=== PATIENT | female | born 1970 | race African-American/Black ===

== ENCOUNTER 2018-12-02 15:17 | Emergency (ER) | payer MEDICAID ==
[~2018-12-02] VITALS: Ht 157.5 cm; Wt 64.9 kg
[2018-12-02] MEDS ORDERED: IBUPROFEN 600 MG TAB PO ONE (15:45)
[2018-12-02 20:09] VITALS: BP 145/98
== END 2018-12-02 20:16 | disposition home or self-care (01) ==
LOC: ER 15:17
DX: M19.011 Primary osteoarthritis, right shoulder (principal)
CPT/HCPCS: 73030

== ENCOUNTER 2019-10-27 13:59 | Emergency (ER) | payer MEDICAID ==
[~2019-10-27] VITALS: Ht 160 cm; Wt 58.5 kg
[2019-10-27] MEDS ORDERED: SODIUM CHLORIDE 0.9% 1,000 ML IVB ONE (14:35)
[2019-10-27] MEDS ORDERED: PROMETHAZINE HCL 25 MG/ML 1ML IV PRN (14:45)
[2019-10-27 15:06] LABS: Basophils # (auto) 0.1 uL; Basophils % (auto) 0.9 % (0.0-2.0); Eosinophils # (auto) 0.1 uL; Eosinophils % (auto) 0.4 % (0.0-7.0); Hematocrit 42.3 % (36.0-46.0); Hemoglobin 14.3 g/dL (12.2-16.2); Lymphocytes # (auto) 3.7 uL; Mean Corpuscular Hemoglobin 32.4 pg (28.0-32.0); Mean Corpuscular Hgb Conc. 33.8 g/dL (32.0-36.0); Mean Corpuscular Volume 95.7 fL (80.0-100.0); Monocytes # (auto) 1.4 uL; Monocytes % (auto) 10.2 % (0.0-12.0); Neutrophils # (auto) 8.5 uL; Neutrophils % (auto) 61.5 % (37.0-80.0); Platelet Count (auto) 260 10^3/uL (140-450); Red Blood Cells 4.42 10^6/uL (4.0-5.20); Red Cell Distribution Width 14.1 % (11.8-14.3); White Blood Cell 13.8 10^3/uL (4.4-10.8)
[2019-10-27 15:23] LABS: Albumin 3.6 g/dL (3.4-5.0); BUN/Creatinine Ratio 19.3; Calcium 9.4 mg/dL (8.5-10.1)
[2019-10-27 15:32] LABS: Bilirubin, Total 0.4 mg/dL (0.2-1.0); Total Protein 8.2 g/dL (6.4-8.2)
[2019-10-27 16:09] LABS: Urine Bacteria FEW /hpf (None Seen); Urine Blood Negative /uL (Negative); Urine Mucus FEW (None Seen); Urine Specific Gravity 1.021 (1.001-1.035); Urine WBC 1 /hpf (0 - 5)
[2019-10-27 16:59] VITALS: BP 155/94
== END 2019-10-27 17:38 | disposition home or self-care (01) ==
LOC: ER 13:59
DX: N20.0 Calculus of kidney (principal); E27.8 Other specified disorders of adrenal gland
CPT/HCPCS: 36415; 71045; 74176; 80053; 81001; 81025; 82150; 83690; 83735; 85025; 96361; 96374; 99284; J2550; J7030

== ENCOUNTER 2021-03-31 00:49 | Inpatient (IN) | payer MEDICAID ==
[~2021-03-31] VITALS: Ht 160 cm; Wt 65.8 kg
[2021-03-31 02:46] LABS: Basophils # (auto) 0.2 10 ^3/uL (0-0.2); Basophils % (auto) 1.5 % (0.0-2.0); Eosinophils # (auto) 0.2 10 ^3/uL (0-0.8); Eosinophils % (auto) 1.3 % (0.0-7.0); Hemoglobin 13.5 g/dL (12.2-16.2); Lymphocytes # (auto) 3.9 10 ^3/uL (0.4-5.4); Lymphocytes % (auto) 31.4 % (10.0-50.0); Mean Corpuscular Hemoglobin 31.5 pg (28.0-32.0); Mean Corpuscular Hgb Conc. 32.8 g/dL (32.0-36.0); Mean Corpuscular Volume 96.1 fL (80.0-100.0); Monocytes # (auto) 1.4 10 ^3/uL (0-1.3); Monocytes % (auto) 11.3 % (0.0-12.0); Neutrophils # (auto) 6.7 10 ^3/uL (1.6-8.6); Neutrophils % (auto) 54.5 % (37.0-80.0); Nucleated Red Blood Cells % 0.1 %; Red Blood Cells 4.27 10^6/uL (4.0-5.20); Red Cell Distribution Width 13.9 % (11.8-14.3); White Blood Cell 12.3 10^3/uL (4.4-10.8)
[2021-03-31 02:50] LABS: Urine Bacteria FEW /hpf (None Seen); Urine Blood Negative /uL (Negative); Urine Mucus FEW (None Seen); Urine Specific Gravity 1.022 (1.001-1.035); Urine WBC 7 /hpf (0 - 5)
[2021-03-31 03:03] LABS: Albumin 3.7 g/dL (3.4-5.0); BUN/Creatinine Ratio 17.9; Calcium 8.8 mg/dL (8.5-10.1)
[2021-03-31 03:12] LABS: Bilirubin, Total 0.2 mg/dL (0.2-1.0); Total Protein 8.1 g/dL (6.4-8.2)
[2021-03-31] MEDS ORDERED: KETOROLAC TROMETH 60MG/2ML VIAL IM ONE (03:15)
[2021-03-31] MEDS ORDERED: cloNIDine HCL 0.1 MG TAB PO ONE (03:30)
[2021-03-31] MEDS ORDERED: SODIUM CHLORIDE 0.9% 1,000 ML IV ONE (03:45)
[2021-03-31] MEDS ORDERED: metroNIDAZOLE 500MG/100ML 100 ML IV ONE (05:00)
[2021-03-31] MEDS ORDERED: cefTRIAXone 1GM/50ML D5W 50 ML IV ONE (05:00)
[2021-03-31 05:16] LABS: Amylase 80 U/L (25-115); Lipase 453 U/L (73-393)
[2021-03-31] MEDS: SODIUM CHLORIDE 0.9% 1,000 ML IV SCH ×2 (05:45→22:14)
[2021-03-31] MEDS ORDERED: HYDROcodone-ACET 5/325MG TAB PO PRN (05:45)
[2021-03-31] MEDS ORDERED: ACETAMINOPHEN 325 MG TAB PO PRN (05:45)
[2021-03-31] MEDS ORDERED: MORPHINE SULFATE 4 MG/ML SYR/VIAL IV PRN (05:45)
[2021-03-31] MEDS ORDERED: NITROGLYCERIN 0.4 MG SL TAB SL PRN (05:45)
[2021-03-31] MEDS ORDERED: hydrALAZINE HCL 20 MG/ML VL IV PRN (05:45)
[2021-03-31] MEDS ORDERED: MORPHINE SULFATE INJECTION 2 MG/ML SYRG IV PRN (05:45)
[2021-03-31] MEDS ORDERED: metroNIDAZOLE 500MG/100ML 100 ML IV SCH (06:00)
[2021-03-31] MEDS: ONDANSETRON HCL 4 MG/2 ML VIAL IV PRN ×3 (06:46→21:01)
[2021-03-31 07:38] LABS: Basophils # (auto) 0.1 10 ^3/uL (0-0.2); Basophils % (auto) 0.7 % (0.0-2.0); Eosinophils # (auto) 0.1 10 ^3/uL (0-0.8); Eosinophils % (auto) 1.4 % (0.0-7.0); Hematocrit 35.5 % (36.0-46.0); Hemoglobin 11.6 g/dL (12.2-16.2); Lymphocytes # (auto) 3.4 10 ^3/uL (0.4-5.4); Lymphocytes % (auto) 35.3 % (10.0-50.0); Mean Corpuscular Hemoglobin 31.7 pg (28.0-32.0); Mean Corpuscular Hgb Conc. 32.7 g/dL (32.0-36.0); Mean Corpuscular Volume 96.7 fL (80.0-100.0); Monocytes # (auto) 1.1 10 ^3/uL (0-1.3); Monocytes % (auto) 11.2 % (0.0-12.0); Neutrophils # (auto) 4.9 10 ^3/uL (1.6-8.6); Neutrophils % (auto) 51.4 % (37.0-80.0); Nucleated Red Blood Cells % 0.1 %; Red Blood Cells 3.67 10^6/uL (4.0-5.20); Red Cell Distribution Width 13.9 % (11.8-14.3); White Blood Cell 9.5 10^3/uL (4.4-10.8)
[2021-03-31 07:55] LABS: Albumin 2.9 g/dL (3.4-5.0); Calcium 8.1 mg/dL (8.5-10.1); Potassium 4.1 mmol/L (3.5-5.1)
[2021-03-31 08:00] LABS: BUN/Creatinine Ratio 20.6; Bilirubin, Total 0.2 mg/dL (0.2-1.0); Total Protein 6.7 g/dL (6.4-8.2)
[2021-03-31 08:54] VITALS: BP 115/71
[2021-03-31] MEDS ORDERED: BUPR100T15 PO (08:56)
[2021-03-31] MEDS ORDERED: cefTRIAXone 1GM/50ML D5W 50 ML IV SCH (09:00)
[2021-03-31] MEDS: FAMOTIDINE (10MG/ML) 2ML VL IV SCH ×2 (09:44→21:00)
[2021-03-31] MEDS: ENOXAPARIN SOD 40 MG/0.4 ML SYRINGE SC SCH (09:45)
[2021-03-31] MEDS: amLODIPine BESYLATE 5 MG TAB PO SCH (09:45)
[2021-03-31 13:00] VITALS: BP 113/58
[2021-03-31] MEDS ORDERED: THIAMINE HCL 100 MG TAB PO ONE (13:00)
[2021-03-31] MEDS ORDERED: MULTIPLE VITAMINS W/ MINERALS TAB PO ONE (13:00)
[2021-03-31] MEDS: MORPHINE SULFATE INJECTION 2 MG/ML SYRG IV PRN ×2 (15:44→21:00)
[2021-03-31 16:42] VITALS: BP 132/78
[2021-03-31 19:36] LABS: Alcohol, Urine < 3.0 mg/dL (0-10); Amphetamine Screen, Urine NEGATIVE (NEGATIVE); Barbiturate Scree,Urine NEGATIVE (NEGATIVE); Benzodiazephine Screen, Urine NEGATIVE (NEGATIVE); Cannabinoid Screen, Urine POSITIVE (NEGATIVE); Cocaine Screen, Urine NEGATIVE (NEGATIVE); Opiate Scree,Urine NEGATIVE (NEGATIVE); Phencyclidine Screen, Urine NEGATIVE (NEGATIVE)
[2021-03-31 22:00] VITALS: BP 138/80
[2021-03-31] MEDS ORDERED: TEMAZEPAM 15 MG CAP PO ONE (22:15)
[2021-04-01 05:00] VITALS: BP 113/68
[2021-04-01 05:15] LABS: Basophils # (auto) 0 10 ^3/uL (0-0.2); Basophils % (auto) 0.5 % (0.0-2.0); Eosinophils # (auto) 0.1 10 ^3/uL (0-0.8); Eosinophils % (auto) 1.9 % (0.0-7.0); Hematocrit 34.7 % (36.0-46.0); Hemoglobin 11.8 g/dL (12.2-16.2); Lymphocytes # (auto) 3.1 10 ^3/uL (0.4-5.4); Lymphocytes % (auto) 40.9 % (10.0-50.0); Mean Corpuscular Hemoglobin 32.5 pg (28.0-32.0); Mean Corpuscular Volume 95.8 fL (80.0-100.0); Monocytes # (auto) 0.9 10 ^3/uL (0-1.3); Monocytes % (auto) 11.9 % (0.0-12.0); Neutrophils # (auto) 3.4 10 ^3/uL (1.6-8.6); Neutrophils % (auto) 44.8 % (37.0-80.0); Nucleated Red Blood Cells % 0.2 %; Red Blood Cells 3.62 10^6/uL (4.0-5.20); Red Cell Distribution Width 13.7 % (11.8-14.3); White Blood Cell 7.5 10^3/uL (4.4-10.8)
[2021-04-01 05:40] LABS: Potassium 4.2 mmol/L (3.5-5.1)
[2021-04-01 05:51] LABS: Albumin 2.9 g/dL (3.4-5.0); BUN/Creatinine Ratio 13.1; Bilirubin, Total 0.4 mg/dL (0.2-1.0); Total Protein 6.5 g/dL (6.4-8.2)
[2021-04-01 09:00] VITALS: BP 115/73
[2021-04-01] MEDS: FAMOTIDINE (10MG/ML) 2ML VL IV SCH (09:56)
[2021-04-01] MEDS: ENOXAPARIN SOD 40 MG/0.4 ML SYRINGE SC SCH (09:57)
[2021-04-01] MEDS: amLODIPine BESYLATE 5 MG TAB PO SCH (09:57)
[2021-04-01] MEDS ORDERED: MULTIPLE VITAMINS W/ MINERALS TAB PO SCH (10:00)
[2021-04-01] MEDS ORDERED: THIAMINE HCL 100 MG TAB PO SCH (10:00)
[2021-04-01 13:00] VITALS: BP 151/95
[2021-04-01 14:53] VITALS: BP 115/73
[2021-04-01] MEDS: SODIUM CHLORIDE 0.9% 1,000 ML IV SCH (15:05)
== END 2021-04-01 16:40 | disposition home or self-care (01) | DRG 282 ==
LOC: ER 00:49 → TELE 05:40 → TELE-WESTW 07:52
PROVIDERS: ADMIT Nurse Practitioner Family; ATTEND Internal Medicine
DX: K85.90 Acute pancreatitis without necrosis or infection, unspecified (principal); R65.10 Systemic inflammatory response syndrome (SIRS) of non-infectious origin without acute organ dysfunction; E44.0 Moderate protein-calorie malnutrition; E88.09 Other disorders of plasma-protein metabolism, not elsewhere classified; F10.10 Alcohol abuse, uncomplicated; S39.012A Strain of muscle, fascia and tendon of lower back, initial encounter; D63.8 Anemia in other chronic diseases classified elsewhere; F12.90 Cannabis use, unspecified, uncomplicated; I16.0 Hypertensive urgency; F17.210 Nicotine dependence, cigarettes, uncomplicated; N20.0 Calculus of kidney; Z20.822 Contact with and (suspected) exposure to COVID-19; X58.XXXA Exposure to other specified factors, initial encounter; Y93.89 Activity, other specified; Z71.6 Tobacco abuse counseling; Z71.41 Alcohol abuse counseling and surveillance of alcoholic; Z82.49 Family history of ischemic heart disease and other diseases of the circulatory system; Y92.89 Other specified places as the place of occurrence of the external cause; Y99.8 Other external cause status; K29.70 Gastritis, unspecified, without bleeding
CPT/HCPCS: 36415; 71045; 74176; 80053; 80307; 81001; 81025; 82150; 83036; 83605; 83690; 83735; 85025; 87040; 87426; 93005; 96361; 96365; 96366; 96367; 96368; 96375; G0378; J0696; J1885; J2405; J3490

== ENCOUNTER 2023-06-23 04:26 | Inpatient (IN) | payer OTHER, MEDICAID ==
[~2023-06-23] VITALS: Ht 162.6 cm; Wt 69.8 kg
[~2023-06-23 04:26] MED LIST: BUPR-413 PO
[2023-06-23 05:10] LABS: Basophils # (auto) 0.1 10 ^3/uL (0-0.2); Basophils % (auto) 1.1 % (0.0-2.0); Eosinophils # (auto) 0.3 10 ^3/uL (0-0.8); Eosinophils % (auto) 2.2 % (0.0-7.0); Hematocrit 38.8 % (36.0-46.0); Hemoglobin 12.9 g/dL (12.2-16.2); Lymphocytes % (auto) 33.8 % (10.0-50.0); Mean Corpuscular Hgb Conc. 33.2 g/dL (32.0-36.0); Mean Corpuscular Volume 93.4 fL (80.0-100.0); Monocytes # (auto) 1.4 10 ^3/uL (0-1.3); Monocytes % (auto) 11.6 % (0.0-12.0); Neutrophils # (auto) 6.1 10 ^3/uL (1.6-8.6); Neutrophils % (auto) 51.3 % (37.0-80.0); Nucleated Red Blood Cells % 0.1 %; Red Blood Cells 4.16 10^6/uL (4.0-5.20); Red Cell Distribution Width 13.9 % (11.8-14.3); White Blood Cell 11.8 10^3/uL (4.4-10.8)
[2023-06-23 05:48] LABS: Albumin 3.5 g/dL (3.4-5.0); Calcium 9.4 mg/dL (8.5-10.1)
[2023-06-23 05:51] LABS: Potassium 2.9 mmol/L (3.5-5.1)
[2023-06-23 05:54] LABS: BUN/Creatinine Ratio 18.8 (10.0-20.0); Bilirubin, Total 0.2 mg/dL (0.2-1.0); Total Protein 7.8 g/dL (6.4-8.2)
[2023-06-23] MEDS ORDERED: POTASSIUM CHL 20MEQ/100ML 100 ML IV SCH (06:00)
[2023-06-23] MEDS ORDERED: METOCLOPRAMIDE HCL 5MG/ml INJ 2ml VIAL IV ONE (07:00)
[2023-06-23] MEDS ORDERED: SODIUM CHLORIDE 0.9% 1,000 ML IVB ONE (07:00)
[2023-06-23] MEDS ORDERED: HYDROmorphone HCL 2 MG/ML VL/or syr IV ONE (07:00)
[2023-06-23] MEDS ORDERED: SODIUM CHLORIDE 0.9% 1,000 ML IV ONE (07:00)
[2023-06-23] MEDS ORDERED: IOHEXOL 300 MG/ML 100ML BOTTLE IJ ONE (07:21)
[2023-06-23] MEDS ORDERED: POTASSIUM EFFERVESENT TAB 25 MEQ PO ONE (08:30)
[2023-06-23 08:41] VITALS: PULSE 76
[2023-06-23 10:15] LABS: Urine Bacteria FEW /hpf (None Seen); Urine Blood Negative /uL (Negative); Urine Clarity HAZY (Clear); Urine Color Yellow (Yellow); Urine Hyaline Cast FEW /lpf (0 - 2); Urine Mucus FEW (None Seen); Urine Protein, UAD TRACE (Negative); Urine Specific Gravity 1.025 (1.001-1.035); Urine Urobilinogen Normal (Negative); Urine WBC 9 /hpf (0 - 5)
[2023-06-23] MEDS ORDERED: hydrALAZINE HCL 20 MG/ML VL IV PRN (12:00)
[2023-06-23] MEDS ORDERED: levoFLOXacin 500MG 100 ML IV SCH (12:15)
[2023-06-23] MEDS: SODIUM CHLORIDE 0.9% 1,000 ML IV SCH (13:36)
[2023-06-23 14:15] LABS: Amphetamine Screen, Urine NEGATIVE (NEGATIVE); Barbiturate Scree,Urine NEGATIVE (NEGATIVE); Benzodiazephine Screen, Urine NEGATIVE (NEGATIVE); Cannabinoid Screen, Urine POSITIVE (NEGATIVE); Cocaine Screen, Urine NEGATIVE (NEGATIVE); Opiate Scree,Urine NEGATIVE (NEGATIVE)
[2023-06-23] MEDS: cefTRIAXone 1GM/50ML D5W 50 ML IV SCH (14:19)
[2023-06-23] MEDS: DOCUSATE SOD 100 MG CAP PO SCH ×2 (14:36→21:08)
[2023-06-23] MEDS: metroNIDAZOLE 500MG/100ML 100 ML IV SCH ×2 (14:56→21:09)
[2023-06-23] MEDS: HYDROcodone-ACET 5/325MG TAB PO PRN ×2 (15:38→21:56)
[2023-06-23 16:27] LABS: Alcohol, Urine < 3.0 mg/dL (0-10)
[2023-06-23 16:36] LABS: Phencyclidine Screen, Urine NEGATIVE (NEGATIVE)
[2023-06-23 17:38] LABS: BUN/Creatinine Ratio 12.3 (10.0-20.0); Calcium 8.9 mg/dL (8.5-10.1); Potassium 3.3 mmol/L (3.5-5.1)
[2023-06-23] MEDS ORDERED: ONDANSETRON HCL 4 MG/2 ML VIAL IV PRN (23:00)
[2023-06-24] MEDS ORDERED: ZOLPIDEM TARTRATE 5 MG TAB PO ONE
[2023-06-24] MEDS: SODIUM CHLORIDE 0.9% 1,000 ML IV SCH ×2 (01:44→14:41)
[2023-06-24 05:03] LABS: Basophils # (auto) 0.1 10 ^3/uL (0-0.2); Basophils % (auto) 0.8 % (0.0-2.0); Calcium 8.5 mg/dL (8.5-10.1); Eosinophils # (auto) 0.1 10 ^3/uL (0-0.8); Eosinophils % (auto) 1.5 % (0.0-7.0); Hematocrit 33.8 % (36.0-46.0); Hemoglobin 11.3 g/dL (12.2-16.2); Lymphocytes # (auto) 3.8 10 ^3/uL (0.4-5.4); Lymphocytes % (auto) 37.7 % (10.0-50.0); Mean Corpuscular Hemoglobin 31.3 pg (28.0-32.0); Mean Corpuscular Hgb Conc. 33.3 g/dL (32.0-36.0); Mean Corpuscular Volume 93.9 fL (80.0-100.0); Monocytes % (auto) 10.2 % (0.0-12.0); Neutrophils % (auto) 49.8 % (37.0-80.0); Nucleated Red Blood Cells % 0.1 %; Potassium 3.5 mmol/L (3.5-5.1); Red Cell Distribution Width 13.7 % (11.8-14.3)
[2023-06-24] MEDS: DOCUSATE SOD 100 MG CAP PO SCH ×3 (05:39→22:13)
[2023-06-24] MEDS: HYDROcodone-ACET 5/325MG TAB PO PRN ×3 (05:54→22:13)
[2023-06-24 06:05] VITALS: PULSE 85; RESP 18; O2SAT 100
[2023-06-24] MEDS: metroNIDAZOLE 500MG/100ML 100 ML IV SCH ×3 (06:08→22:12)
[2023-06-24 07:45] VITALS: PULSE 67; RESP 16; O2SAT 95
[2023-06-24] MEDS: MORPHINE SULFATE INJ 2 MG/ml SYRG IV PRN ×2 (07:53→14:42)
[2023-06-24] MEDS: cefTRIAXone 1GM/50ML D5W 50 ML IV SCH (10:02)
[2023-06-24] MEDS ORDERED: ATOR10TA52 PO (13:32)
[2023-06-24 13:33] VITALS: BP 150/60; PULSE 93; RESP 18; TEMP 97.5; O2SAT 93
[2023-06-24 17:16] VITALS: BP 167/90; PULSE 91; RESP 18; TEMP 97.6; O2SAT 98
[2023-06-24 22:00] VITALS: BP 138/80; PULSE 80; PULSE 82; RESP 16; TEMP 97.7; O2SAT 98
[2023-06-25] MEDS ORDERED: METR-344 PO (00:23)
[2023-06-25] MEDS ORDERED: CIPR-173 PO (00:23)
[2023-06-25] MEDS: MORPHINE SULFATE INJ 2 MG/ml SYRG IV PRN (01:16)
[2023-06-25] MEDS: SODIUM CHLORIDE 0.9% 1,000 ML IV SCH (02:49)
[2023-06-25 05:00] VITALS: BP 119/67; PULSE 78; RESP 16; TEMP 98.4; O2SAT 96
[2023-06-25] MEDS: metroNIDAZOLE 500MG/100ML 100 ML IV SCH (06:10)
[2023-06-25] MEDS: DOCUSATE SOD 100 MG CAP PO SCH (06:10)
[2023-06-25 07:10] LABS: Basophils # (auto) 0 10 ^3/uL (0-0.2); Basophils % (auto) 0.6 % (0.0-2.0); Eosinophils # (auto) 0.1 10 ^3/uL (0-0.8); Eosinophils % (auto) 1.5 % (0.0-7.0); Hematocrit 31.8 % (36.0-46.0); Hemoglobin 10.5 g/dL (12.2-16.2); Lymphocytes # (auto) 3.2 10 ^3/uL (0.4-5.4); Lymphocytes % (auto) 40.8 % (10.0-50.0); Monocytes # (auto) 0.7 10 ^3/uL (0-1.3); Monocytes % (auto) 9.4 % (0.0-12.0); Neutrophils # (auto) 3.7 10 ^3/uL (1.6-8.6); Neutrophils % (auto) 47.7 % (37.0-80.0); Nucleated Red Blood Cells % 0.1 %; Red Blood Cells 3.38 10^6/uL (4.0-5.20); Red Cell Distribution Width 14.2 % (11.8-14.3); White Blood Cell 7.8 10^3/uL (4.4-10.8)
[2023-06-25 07:59] LABS: BUN/Creatinine Ratio 10.3 (10.0-20.0); Calcium 8.5 mg/dL (8.7-10.4); Potassium 3.8 mmol/L (3.5-5.1)
[2023-06-25 08:00] VITALS: BP 124/70; PULSE 70; PULSE 77; RESP 20; TEMP 97.9
[2023-06-25] MEDS: cefTRIAXone 1GM/50ML D5W 50 ML IV SCH (08:45)
[2023-06-25 09:00] VITALS: BP 124/70; PULSE 77; RESP 20; TEMP 97.9; O2SAT 93
[2023-06-25 10:49] LABS: Cholesterol 146 mg/dL (< 200); HDL Cholesterol 52 mg/dL (40-59); LDL Cholesterol 86 mg/dL (< 100); Triglycerides 31 mg/dL (< 150)
[2023-06-25 12:36] VITALS: BP 131/75; PULSE 85; RESP 20; TEMP 98.7; O2SAT 99
[2023-06-25 14:15] VITALS: BP 124/70; PULSE 77; RESP 20; TEMP 97.9; O2SAT 93
== END 2023-06-25 15:27 | disposition home or self-care (01) | DRG 439 ==
LOC: EDBD 04:26 → ER 04:26 → TELE 12:12 → TELE-WESTW 06-24 13:27
PROVIDERS: ADMIT Internal Medicine; ATTEND Internal Medicine
DX: K85.90 Acute pancreatitis without necrosis or infection, unspecified (principal); F11.20 Opioid dependence, uncomplicated; N39.0 Urinary tract infection, site not specified; I11.0 Hypertensive heart disease with heart failure; I50.9 Heart failure, unspecified; E78.5 Hyperlipidemia, unspecified; G43.D1 Abdominal migraine, intractable; E87.6 Hypokalemia; F32.A Depression, unspecified; F41.9 Anxiety disorder, unspecified; M54.2 Cervicalgia; K52.9 Noninfective gastroenteritis and colitis, unspecified; G47.00 Insomnia, unspecified; Z82.49 Family history of ischemic heart disease and other diseases of the circulatory system; Z87.440 Personal history of urinary (tract) infections; Z87.442 Personal history of urinary calculi; K86.1 Other chronic pancreatitis
CPT/HCPCS: 36415; 71046; 74177; 80048; 80053; 80061; 80307; 81001; 83690; 83735; 83880; 85025; 93005; G0378; J0696; J2405; J3490

== ENCOUNTER 2023-08-02 21:10 | Emergency (ER) | payer OTHER, MEDICAID ==
[~2023-08-02] VITALS: Ht 160 cm; Wt 59.9 kg
[~2023-08-02 21:10] MED LIST changes: +ATOR10TA52 PO; +CIPR-173 PO; +METR-344 PO
[2023-08-02 22:41] LABS: Basophils # (auto) 0.1 10 ^3/uL (0-0.2); Basophils % (auto) 0.9 % (0.0-2.0); Eosinophils # (auto) 0.2 10 ^3/uL (0-0.8); Eosinophils % (auto) 1.3 % (0.0-7.0); Hematocrit 40.4 % (36.0-46.0); Hemoglobin 13.6 g/dL (12.2-16.2); Lymphocytes # (auto) 4.3 10 ^3/uL (0.4-5.4); Lymphocytes % (auto) 35.4 % (10.0-50.0); Mean Corpuscular Hemoglobin 31.8 pg (28.0-32.0); Mean Corpuscular Hgb Conc. 33.6 g/dL (32.0-36.0); Mean Corpuscular Volume 94.5 fL (80.0-100.0); Monocytes # (auto) 1.2 10 ^3/uL (0-1.3); Monocytes % (auto) 10.3 % (0.0-12.0); Neutrophils # (auto) 6.3 10 ^3/uL (1.6-8.6); Neutrophils % (auto) 52.1 % (37.0-80.0); Red Blood Cells 4.27 10^6/uL (4.0-5.20); Red Cell Distribution Width 14.4 % (11.8-14.3); White Blood Cell 12.1 10^3/uL (4.4-10.8)
[2023-08-02 22:52] LABS: Urine Bacteria NONE SEEN /hpf (None Seen); Urine Blood Negative /uL (Negative); Urine Clarity HAZY (Clear); Urine Color Yellow (Yellow); Urine Mucus FEW (None Seen); Urine Protein, UAD TRACE (Negative); Urine Specific Gravity 1.023 (1.001-1.035); Urine Urobilinogen Normal (Negative); Urine WBC 9 /hpf (0 - 5)
[2023-08-02 22:52] LABS: Alanine Aminotransferase 19 U/L (7-40); Albumin 4.9 g/dL (3.2-4.8); Alkaline Phosphatase 102 U/L (46-116); Anion Gap 6 (5-15); Aspartate Aminotransferase 15 U/L (13-40); BUN/Creatinine Ratio 16.7 (10.0-20.0); Blood Urea Nitrogen 16 mg/dL (9-23); Calcium 9.9 mg/dL (8.7-10.4); Carbon Dioxide 33 mmol/L (20-30); Chloride 99 mmol/L (98-107); Glucose 131 mg/dL (74-106); Lipase 157 U/L (12-53); Magnesium 1.7 mg/dL (1.6-2.6); Potassium 3.5 mmol/L (3.5-5.1); Sodium 138 mmol/L (136-145)
[2023-08-02 22:53] LABS: Bilirubin, Total 0.2 mg/dL (0.2-1.0); Total Protein 8.3 g/dL (5.7-8.2)
[2023-08-03] MEDS ORDERED: MORPHINE SULFATE INJ 2 MG/ml SYRG IM ONE (03:30)
[2023-08-03 04:13] VITALS: PULSE 84; RESP 19; O2SAT 98
[2023-08-03] MEDS ORDERED: ONDANSETRON HCL 4 MG/2 ML VIAL IV ONE (04:30)
[2023-08-03] MEDS ORDERED: ONDANSETRON HCL 4 MG/2 ML VIAL ONE (04:33)
[2023-08-03] MEDS ORDERED: cefTRIAXone 1GM/50ML D5W 50 ML IV ONE (06:00)
[2023-08-03] MEDS ORDERED: ONDANSETRON HCL 4 MG/2 ML VIAL IV PRN (06:00)
[2023-08-03] MEDS ORDERED: SODIUM CHLORIDE 0.9% 1,000 ML IV ONE (06:00)
[2023-08-03] MEDS ORDERED: MORPHINE SULFATE INJ 2 MG/ml SYRG IV PRN (06:00)
[2023-08-03 08:40] VITALS: BP 125/75; PULSE 83; RESP 18; TEMP 98.1; O2SAT 96
== END 2023-08-03 08:40 | disposition short-term general hospital (02) ==
LOC: ER 21:10
DX: K85.90 Acute pancreatitis without necrosis or infection, unspecified (principal); I11.0 Hypertensive heart disease with heart failure; I50.9 Heart failure, unspecified; E11.9 Type 2 diabetes mellitus without complications; E78.5 Hyperlipidemia, unspecified; F17.210 Nicotine dependence, cigarettes, uncomplicated; Z79.2 Long term (current) use of antibiotics; Z79.899 Other long term (current) drug therapy
CPT/HCPCS: 36415; 74176; 80053; 81001; 81025; 83690; 83735; 84484; 85025; 93005; 96365; 96372; 96375; 96376; 99285; J0696; J2270; J2405

== ENCOUNTER 2024-09-08 13:33 | Inpatient (IN) | payer OTHER ==
[~2024-09-08] VITALS: Ht 157.5 cm; Wt 57.4 kg
[2024-09-08 15:10] LABS: Basophils # (auto) 0.1 10 ^3/uL (0-0.2); Basophils % (auto) 0.9 % (0.0-2.0); Eosinophils # (auto) 0.1 10 ^3/uL (0-0.8); Eosinophils % (auto) 0.5 % (0.0-7.0); Hematocrit 42.6 % (36.0-46.0); Hemoglobin 14.4 g/dL (12.2-16.2); Lymphocytes % (auto) 30.4 % (10.0-50.0); Mean Corpuscular Hgb Conc. 33.8 g/dL (32.0-36.0); Mean Corpuscular Volume 94.7 fL (80.0-100.0); Monocytes # (auto) 1.6 10 ^3/uL (0-1.3); Monocytes % (auto) 12.3 % (0.0-12.0); Neutrophils # (auto) 7.4 10 ^3/uL (1.6-8.6); Neutrophils % (auto) 55.9 % (37.0-80.0); Nucleated Red Blood Cells % 0.1 %; Platelet Count (auto) 315 10^3/uL (140-450); White Blood Cell 13.2 10^3/uL (4.4-10.8)
--- NOTE | 2024-09-08 15:12 | ED.PDOC ---
History of Present Illness HPI Comments 53-year-old female presents with a chief complaint of constipation and abdominal pain since 08/31/2024. Patient reports that she has been taking Wittmann's for her chronic back pain. Patient mentions being constipated since 08/31/2024 and has endorsed that she has been using stool softeners with no relief. Patient also reports that she has some LUQ abdominal pain. No other symptoms or modifying factors present. Chief Complaint: Constipation Time Seen by MD: 14:48 Primary Care Provider: MADONNA Morrow Notes: Medications, Allergies Allergies: Coded Allergies: NO KNOWN ALLERGIES (Unverified , 03/04/16) Home Meds Active Scripts Pantoprazole Sodium Sesquihydr (Protonix) 40 Mg Tab, 40 MG PO DAILY for 7 Days, #7 TAB Prov:ODESSA SULLIVAN MD 09/08/24 Cephalexin (KEFLEX CAPSULE) 250 Mg Cp, 250 MG PO QID for 5 Days, #20 BOTTLE Prov:ODESSA SULLIVAN MD 09/08/24 Metronidazole (Flagyl) 500 Mg Tab, 1 TAB PO TID, #15 TAB Prov:VICENTE DENNY MD 06/25/23 Ciprofloxacin Hcl (Cipro) 500 Mg Tab, 500 MG PO Q12HR, #10 TAB Prov:VICENTE DENNY MD 06/25/23 Reported Medications Atorvastatin Calcium (ATORVASTATIN CALCIUM) 10 Mg Tab, 1 TAB PO DAILY, #30 TAB 5 Refills 06/24/23 Bupropion Hcl (WELLBUTRIN TABLET) 100 Mg Tb, 100 MG PO DAILY, TAB 03/31/21 Information Source: Patient Mode of Arrival: Ambulatory Severity: Moderate Timing: Days Duration: Since onset Prehospital treatment: None Past Medical History PAST MEDICAL HISTORY: CHF, DM, High Lipids, HTN, Kidney Stones Surgical History: BTL DIRECTOR OF TEACHING AND LEARNING History: No Pertinent DIRECTOR OF TEACHING AND LEARNING History Family History Family History: Family hx of HTN Family History (Other): fibromyalgia Social History Smoker: Cigarettes, Less Than 1 Pack/Day Alcohol: Denies ETOH Use Drugs: Marijuana Lives In: Home Constitutional: denies: chills, diaphoresis, fatigue, fever, malaise, sweats, weakness, others EENTM: denies: blurred vision, double vision, ear bleeding, ear discharge, ear drainage, ear pain, ear ringing, eye pain, eye redness, hearing loss, mouth pain, mouth swelling, nasal discharge, nose bleeding, nose congestion, nose pain, photophobia, tearing, throat pain, throat swelling, voice changes, others Respiratory: denies: cough, hemoptysis, orthopnea, SOB at rest, shortness of breath, SOB with excertion, stridor, wheezing, others Cardiovascular: denies: chest pain, dizzy spells, diaphoresis, Dyspnea on exertion, edema, irregular heart beat, left arm pain, lightheadedness, palpitations, PND, syncope, others Gastrointestinal: reports: abdominal pain, constipated; denies: abdomen distended, blood streaked bowels, diarrhea, dysphagia, difficulty swallowing, hematemesis, melena, nausea, poor appetite, poor fluid intake, rectal bleeding, rectal pain, vomiting, others Genitourinary: denies: abnormal vagina bleeding, burning, dyspareunia, dysuria, flank pain, frequency, hematuria, incontinence, pain, , vagina discharge, urgency, others Neurological: denies: dizziness, fainting, headache, left sided numbness, left sided weakness, numbness, paresthesia, pre-existing deficit, right sided numbness, right sided weakness, seizure, speech problems, tingling, tremors, weakness, others Musculoskeletal: denies: back pain, gout, joint pain, joint swelling, muscle pain, muscle stiffness, neck pain, others Integumetry: denies: bruises, change in color, change in hair/nails, dryness, laceration, lesions, lumps, rash, wounds, others Allergic/Immunocompromised: denies: Difficulty Healing, Frequent Infections, Hives, Itching, others Hematologic/Lymphatic: denies: anemia, blood clots, easy bleeding, easy bruising, swollen glands, others Endocrine: denies: excessive hunger, excessive sweating, excessive thirst, excessive urination, flushing, intolerance to cold, intolerance to heat, unexplained weight gain, unexplained weight loss, others Psychiatric: denies: anxiety, bipolar disorder, depression, hopeless, panic disorder, schizophrenia, sleepless, suicidal, others All Other Systems: Reviewed and Negative Physical Exam General Appearance: Moderate Distress, Normal HEENT: Normal ENT Inspection, Pharynx Normal, TMs Normal Neck: Full Range of Motion, Non-Tender, Normal, Normal Inspection Respiratory: Chest Non-Tender, Lungs Clear, No Accessory Muscle Use, No Respiratory Distress, Normal Breath Sounds Cardiovascular: No Edema, No JVD, No Murmur, No Gallop, Normal Peripheral Pulses, Tachycardia Breast Exam: Deferred Gastrointestinal: No Organomegaly, Non Tender, No Pulsatile Mass, Normal Bowel Sounds, Soft Genitalia: Deferred Pelvic: Deferred Rectal: Deferred Extremities: No calf tenderness, Normal capillary refill, Normal inspection, N ormal range of motion, Non-tender, No pedal edema Musculoskeletal : Apperance: Normal Neurologic: Alert, cut roll machine offbearer II-XII nml as Tested, No Motor Deficits, Normal Affect, Normal Mood, No Sensory Deficits Cerebellar Function: Normal Reflexes: Normal Skin: Dry, Normal Color, Warm Peripheral Pulses: 3+ Radial (R), 3+ Radial (L) Lymphatic: No Adenopathy Was a procedure done? Was a procedure done?: No Differential Dx Considerations may include: Chronic pain syndrome Electrolyte imbalance X-Ray, Labs, Meds, VS Vital Signs Date Time Temp Pulse Resp B/P (MAP) Pulse Ox O2 Delivery O2 Flow Rate FiO2 09/08/24 13:58 97.8 125 16 124/95 (105) 98 Lab Test 09/08/24 14:51 Range/Units White Blood Count 13.2 H 4.4-10.8 10^3/uL Red Blood Count 4.50 4.0-5.20 10^6/uL Hemoglobin 14.4 12.2-16.2 g/dL Hematocrit 42.6 36.0-46.0 % Mean Corpuscular Volume 94.7 80.0-100.0 fL Mean Corpuscular Hemoglobin 32.0 28.0-32.0 pg Mean Corpuscular Hemoglobin Concent 33.8 32.0-36.0 g/dL Red Cell Distribution Width 14.0 11.8-14.3 % Platelet Count 315 140-450 10^3/uL Mean Platelet Volume 8.4 6.9-10.8 fL Neutrophils (%) (Auto) 55.9 37.0-80.0 % Lymphocytes (%) (Auto) 30.4 10.0-50.0 % Monocytes (%) (Auto) 12.3 H 0.0-12.0 % Eosinophils (%) (Auto) 0.5 0.0-7.0 % Basophils (%) (Auto) 0.9 0.0-2.0 % Neutrophils # (Auto) 7.4 1.6-8.6 10 ^3/uL Lymphocytes # (Auto) 4.0 0.4-5.4 10 ^3/uL Monocytes # (Auto) 1.6 H 0-1.3 10 ^3/uL Eosinophils # (Auto) 0.1 0-0.8 10 ^3/uL Basophils # (Auto) 0.1 0-0.2 10 ^3/uL Nucleated Red Blood Cells 0.1 % Sodium Level 136 136-145 mmol/L Potassium Level 3.8 3.5-5.1 mmol/L Chloride Level 102 98-107 mmol/L Carbon Dioxide Level 29 20-31 mmol/L Anion Gap 5 5-15 Blood Urea Nitrogen 17 9-23 mg/dL Creatinine 1.09 H 0.550-1.02 mg/dL Glomerular Filtration Rate Calc 60 >90 mL/min BUN/Creatinine Ratio 15.6 10.0-20.0 Serum Glucose 131 H 74-106 mg/dL Calcium Level 10.1 8.7-10.4 mg/dL Patient alert. Came in because of constipation. X-ray of the abdomen does not show any acute process. Glucose slightly elevated. WBC slightly elevated. Neutrophils within normal limits. No sign of any infection. Abdomen is soft nontender. Reviewed her previous visit. Continues to be on pain medication. Was given GI cocktail. Possible urinary tract infection. Was given prescription of Keflex antibiotic. Explained to the patient. Wanted to discharge the patient. Came back stating that she is in severe pain. She does not want to go home. States that the pain is worse than when she came in. Time of 1ST Reevaluation: 15:18 Reevaluation 1ST: Unchanged Patient Education/Counseling: Diagnosis, Treatment, Prognosis Family Education/Counseling: No Family Present Departure 1 Departure Time of Disposition: 16:54 Impression: Primary Impression: Gastritis Qualified Codes: K29.30 - Chronic superficial gastritis without bleeding Additional Impression: HTN (hypertension) Qualified Codes: I10 - Essential (primary) hypertension Disposition: 01 HOME / SELF CARE / HOMELESS Condition: Good e-Prescriptions Pantoprazole Sodium Sesquihydr (Protonix) 40 Mg Tab 40 MG PO DAILY for 7 Days, #7 TAB Prov: ODESSA SULLIVAN MD 11/5/24 Cephalexin (KEFLEX CAPSULE) 250 Mg Cp 250 MG PO QID for 5 Days, #20 BOTTLE Prov: ODESSA SULLIVAN MD 09/08/24 Discharged With: Self Critical Care Note Critical Care Time?: No Stability Stability form required: No Heart Score Heart Score: Heart Score Response (Comments) Value History N/A 0 EKG N/A 0 Age N/A 0 Risk Factors N/A 0 Troponin N/A 0 Total 0 I personally scribed for ODESSA SULLIVAN MD ([email or web address]) on 09/08/24 at 15:12. Electronically submitted by Dhruv Cardozo ([email or web address]). ODESSA SULLIVAN MD Sep 08, 2024 15:12
[2024-09-08 15:22] LABS: Chloride 102 mmol/L (98-107); Potassium 3.8 mmol/L (3.5-5.1); Sodium 136 mmol/L (136-145)
[2024-09-08 15:23] LABS: Anion Gap 5 (5-15); Calcium 10.1 mg/dL (8.7-10.4); Carbon Dioxide 29 mmol/L (20-31)
[2024-09-08 15:28] LABS: BUN/Creatinine Ratio 15.6 (10.0-20.0); Blood Urea Nitrogen 17 mg/dL (9-23); Glucose 131 mg/dL (74-106)
--- NOTE | 2024-09-08 15:50 | DVH ---
EXAM: XY KUB ABDOMEN SINGLE VIEW HISTORY: constipation COMPARISON: None TECHNIQUE: Single AP of the abdomen and pelvis was obtained. Findings: Frontal view of the abdomen demonstrates a nonobstructive bowel gas pattern. No visualized renal calc demi. There is no evidence of an acute fracture, dislocation, blastic, or lytic lesions. The visualized portions of the lung bases are unremarkable. No radiopaque foreign bodies. No superficial soft tissue abnormalities. Impression: 1. Nonobstructive bowel gas pattern. 2. No visualized renal calculi.
[2024-09-08] MEDS ORDERED: PANT40TA2 PO (16:56)
[2024-09-08] MEDS ORDERED: CEPH250C PO (16:56)
[2024-09-08] MEDS: MAALOX PLUS or MAALOX 30 ML PO ONE (17:38)
[2024-09-08] MEDS: LIDOCAINE VISCOUS 2% 15ML UD PO ONE (17:38)
[2024-09-08] MEDS: DONNATAL 5ml ORAL Elix (BELLADONNA ALK-PHENOBARB) PO ONE (17:39)
[2024-09-08] MEDS ORDERED: ACETAMINOPHEN 325 MG TAB PO PRN (21:00)
[2024-09-08] MEDS: ONDANSETRON HCL 4 MG/2 ML VIAL IV ONE (21:23)
[2024-09-08] MEDS: MORPHINE SULFATE 4 MG/ML SYR/VIAL IV ONE (21:23)
[2024-09-08 22:40] VITALS: BP 149/93; PULSE 87; RESP 16; TEMP 97.7; O2SAT 93
[2024-09-08 22:52] VITALS: PULSE 87; RESP 16; O2SAT 93
[2024-09-08] MEDS ORDERED: QUET1TAB11 PO (23:04)
[2024-09-08] MEDS ORDERED: CARV3.1240 PO (23:04)
[2024-09-08] MEDS ORDERED: HYDR-4072 PO (23:04)
[2024-09-08] MEDS ORDERED: EMPA1TAB PO (23:04)
[2024-09-08] MEDS ORDERED: ASPI81CH59 PO (23:04)
[2024-09-08] MEDS: ATORVASTATIN 20 MG TAB PO SCH (23:34)
[2024-09-08] MEDS: CARVEDILOL 3.125 MG TAB PO SCH (23:34)
[2024-09-08] MEDS: TEMAZEPAM 15 MG CAP PO PRN (23:35)
[2024-09-08] MEDS: FLEET ENEMA(ADULT) 135 ML PR ONE (23:35)
[2024-09-09] VITALS (7 sets, daily range): BP systolic 98–154; BP diastolic 62–95; PULSE 87–107; RESP 16–20; TEMP 97.4–98.1; O2SAT 95–98
[2024-09-09] MEDS: LACTULOSE 20Gm/30ML SOLN PO PRN (00:15)
[2024-09-09] MEDS: PANTOPRAZOLE 40 MG TAB PO SCH (05:35)
--- NOTE | 2024-09-09 06:03 | DVHHP2 ---
History of Present Illness Reason for Visit: Abdominal pain History of Present Illness 53-year-old female presents for evaluation of abdominal pain. Patient reports a two day history of left upper quadrant abdominal pain. She also states being constipated for the past one-week. She reports having chronic back pain and takes [place] every 4-6 hours. Denies nausea or vomiting. No fever or chills. Cardiac or respiratory complaints. Past Medical History Dyslipidemia, hypertension, diabetes mellitus and congestive heart failure Past Surgical History BTL Family History Hypertension Smoke: <1 pack per day ALCOHOL: none Drugs: Marijuana Lives: with Family Review of Systems Review of Systems Review of systems are currently negative otherwise addressed in HPI Allergies: Coded Allergies: NO KNOWN ALLERGIES (Unverified , 03/04/16) Medications Current Medications Medications Dose Ordered Sig/Sowmya Route Start Time Stop Time Status Last Admin Dose Admin Pantoprazole Sodium 40 mg DAILY@0600 PO 09/09/24 06:00 09/09/24 05:35 40 MG Lactulose 30 ml BIDPRN PRN PO 09/08/24 21:00 09/09/24 00:15 30 ML Atorvastatin Calcium 10 mg HS PO 09/08/24 22:00 09/08/24 23:34 10 MG Bupropion HCl 100 mg DAILY PO 09/09/24 10:00 Carvedilol 3.125 mg Q12HR PO 09/08/24 22:00 09/08/24 23:34 3.125 MG Empaglifozin 10 mg DAILY PO 09/09/24 10:00 Acetaminophen/ Hydrocodone Bitart 1 tab Q4HP PRN PO 09/08/24 21:00 Temazepam 15 mg QHSP PRN PO 09/08/24 21:00 09/08/24 23:35 15 MG Ondansetron HCl 4 mg Q4HP PRN IV 09/08/24 21:00 Acetaminophen 650 mg Q6HP PRN PO 09/08/24 21:00 Exam Vital Signs Vital Signs Date Time Temp Pulse Resp B/P (MAP) Pulse Ox O2 Delivery O2 Flow Rate FiO2 09/09/24 05:00 98.1 107 16 127/78 (94) 95 98.1 09/08/24 22:52 Room Air* 0 21 Exam Gen: 53-year-old female in no apparent distress Skin: Warm, dry, normal color and texture, no rash. HEENT: Normocephalic atraumatic, mucous membranes moist and pink. Neck: Cervical and supraclavicular nodes normal without enlargement, trachea is midline, thyroid gland is normal without masses. Pulmonary: Clear to auscultation and percussion bilaterally. Cardiac: Regular rate and rhythm. No murmur Abdomen: Soft, nontender, nondistended, bowel sounds present all 4 quadrants, no guarding, no rigidity, no organomegaly. Extremities: No cyanosis, clubbing, no edema Neuro: Cranial nerves II through XII grossly intact, normal affect and speech, no focal motor deficits. Labs/Xrays ORDERING PHYSICIAN: ODESSA SULLIVAN MD PROCEDURE(s): KUB - KUB ABDOMEN SINGLE VIEW REASON: constipation ORDER NUMBER(s): [id number], ACCESSION NUMBER(s): [id number] EXAM: XY KUB ABDOMEN SINGLE VIEW HISTORY: constipation COMPARISON: None TECHNIQUE: Single AP of the abdomen and pelvis was obtained. Findings: Frontal view of the abdomen demonstrates a nonobstructive bowel gas pattern. No visualized renal calculi. There is no evidence of an acute fracture, dislocation, blastic, or lytic lesions. The visualized portions of the lung bases are unremarkable. No radiopaque foreign bodies. No superficial soft tissue abnormalities. Impression: 1. Nonobstructive bowel gas pattern. 2. No visualized renal calculi. ATED BY: AISSATOU FISHER DO DICTATED DATE/TIME: 09/08/24 1549 Labs Test 09/08/24 14:51 Range/Units White Blood Count 13.2 H 4.4-10.8 10^3/uL Red Blood Count 4.50 4.0-5.20 10^6/uL Hemoglobin 14.4 12.2-16.2 g/dL Hematocrit 42.6 36.0-46.0 % Mean Corpuscular Volume 94.7 80.0-100.0 fL Mean Corpuscular Hemoglobin 32.0 28.0-32.0 pg Mean Corpuscular Hemoglobin Concent 33.8 32.0-36.0 g/dL Red Cell Distribution Width 14.0 11.8-14.3 % Platelet Count 315 140-450 10^3/uL Mean Platelet Volume 8.4 6.9-10.8 fL Neutrophils (%) (Auto) 55.9 37.0-80.0 % Lymphocytes (%) (Auto) 30.4 10.0-50.0 % Monocytes (%) (Auto) 12.3 H 0.0-12.0 % Eosinophils (%) (Auto) 0.5 0.0-7.0 % Basophils (%) (Auto) 0.9 0.0-2.0 % Neutrophils # (Auto) 7.4 1.6-8.6 10 ^3/uL Lymphocytes # (Auto) 4.0 0.4-5.4 10 ^3/uL Monocytes # (Auto) 1.6 H 0-1.3 10 ^3/uL Eosinophils # (Auto) 0.1 0-0.8 10 ^3/uL Basophils # (Auto) 0.1 0-0.2 10 ^3/uL Nucleated Red Blood Cells 0.1 % Sodium Level 136 136-145 mmol/L Potassium Level 3.8 3.5-5.1 mmol/L Chloride Level 102 98-107 mmol/L Carbon Dioxide Level 29 20-31 mmol/L Anion Gap 5 5-15 Blood Urea Nitrogen 17 9-23 mg/dL Creatinine 1.09 H 0.550-1.02 mg/dL Glomerular Filtration Rate Calc 60 >90 mL/min BUN/Creatinine Ratio 15.6 10.0-20.0 Serum Glucose 131 H 74-106 mg/dL Calcium Level 10.1 8.7-10.4 mg/dL Assessment/Plan Assessment/Plan Acute abdominal pain Constipation Chronic back pain Diabetes mellitus Hypertension Plan Admit the patient to [facility] to the hospitalist Pain management Laxatives Resume home medications Continue treatment per orders. Plan discussed with: Patient My Orders Orders - [facility] Procedure Category Date Status Time Pantoprazole Tablet PHA 09/09/24 In Process (Protonix Tablet) 06:00 Lactulose Oral PHA 09/08/24 In Process 21:00 Atorvastatin (Lipitor) PHA 09/08/24 In Process 22:00 Bupropion Tablet PHA 09/09/24 In Process (Wellbutrin Tablet) 10:00 Carvedilol Tablet PHA 09/08/24 In Process (Coreg Tablet) 22:00 Empagliflozin PHA 09/09/24 In Process (Jardiance) 10:00 Basic Metabolic Panel LAB 09/09/24 Logged 04:00 Admit ADMIT 09/08/24 Transmitted 20:49 Hydrocodone-Acet PHA 09/08/24 In Process 5/325mg Tab ([place] 21:00 Temazepam (Restoril) PHA 09/08/24 In Process 21:00 Ondansetron Hcl PHA 09/08/24 In Process (Zofran) 21:00 Cardiac DIET 09/09/24 Transmitted Diet-2gna,Lofat,Lochol Breakfast Condition: Stable ONELIA 09/08/24 In Process 20:49 Acetaminophen Tablet PHA 09/08/24 In Process (Tylenol Tablet) 21:00 Bedrest With Bathroom ONELIA 09/08/24 In Process Privileg 20:49 Date of Service: Sep 08, 2024 Billing Provider: EVAN CHACKO Common Visit Codes: [id number] INP/OBS CARE (MOD) EVAN CHACKO Sep 09, 2024 06:03
[2024-09-09 07:38] LABS: Chloride 101 mmol/L (98-107); Potassium 3.3 mmol/L (3.5-5.1); Sodium 137 mmol/L (136-145)
[2024-09-09 07:39] LABS: Anion Gap 5 (5-15); Carbon Dioxide 31 mmol/L (20-31)
[2024-09-09 07:40] LABS: Calcium 9.6 mg/dL (8.7-10.4)
[2024-09-09 07:44] LABS: Glucose 93 mg/dL (74-106)
[2024-09-09 07:45] LABS: BUN/Creatinine Ratio 17.7 (10.0-20.0); Blood Urea Nitrogen 17 mg/dL (9-23)
[2024-09-09] MEDS: HYDROcodone-ACET 5/325MG TAB PO PRN (08:29)
[2024-09-09 08:51] LABS: Urine Bacteria None Seen /hpf (None Seen)
[2024-09-09 09:15] LABS: Urine Blood Negative /uL (Negative); Urine Clarity Clear (Clear); Urine Color Light-Yellow (Yellow); Urine Protein, UAD Negative (Negative); Urine Specific Gravity 1.015 (1.001-1.035); Urine Urobilinogen Normal (Negative); Urine WBC 1 /hpf (0 - 5)
[2024-09-09] MEDS: buPROPion HCL 100 MG TAB PO SCH (10:00)
[2024-09-09] MEDS: EMPAGLIFLOZIN 10 MG TAB PO SCH (10:00)
[2024-09-09] MEDS: ONDANSETRON HCL 4 MG/2 ML VIAL IV PRN (12:19)
--- NOTE | 2024-09-09 15:12 | DVHPN2 ---
Subjective 53-year-old female with past medical history of hypertension, diabetes, dyslipidemia, heart failure, chronic back pain came with a chief complaint abdominal pain and constipation for 1 week. She has some nausea no vomiting. She says she lost about 10 lb over the last 1-2 weeks Her appetite is poor She takes [place] 10 about 2 or 3 a day for chronic back pain She was also started recently on Jardiance 10 mg daily about a month ago Changes from previous H/P or p: Changes Objective Vitals Vital Signs Date Time Temp Pulse Resp B/P (MAP) Pulse Ox O2 Delivery O2 Flow Rate FiO2 09/09/24 13:00 97.4 97 18 98/62 (74) 95 97.4 09/08/24 22:52 Room Air* 0 21 Intake/Output Intake and Output 09/09/24 06:59 Intake Total 560 ml Balance 560 ml Intake Oral 560 ml # Voids 6 # Bowel Movements 2 General Appearance: Alert, Oriented X3, Cooperative Lungs: Clear to auscultation, Normal air movement Cardiovascular: Regular rate, Normal S1, Normal S2, No murmurs Abdomen: Normal bowel sounds, Soft, No tenderness Extremities: No edema Medications Current Medications Medications Dose Ordered Sig/Sowmya Route Start Time Stop Time Status Last Admin Dose Admin Pantoprazole Sodium 40 mg DAILY@0600 PO 09/09/24 06:00 09/09/24 05:35 40 MG Lactulose 30 ml BIDPRN PRN PO 09/08/24 21:00 09/09/24 00:15 30 ML Atorvastatin Calcium 10 mg HS PO 09/08/24 22:00 09/08/24 23:34 10 MG Bupropion HCl 100 mg DAILY PO 09/09/24 10:00 09/09/24 10:00 100 MG Carvedilol 3.125 mg Q12HR PO 09/08/24 22:00 09/09/24 10:00 3.125 MG Empaglifozin 10 mg DAILY PO 09/09/24 10:00 09/09/24 10:00 10 MG Acetaminophen/ Hydrocodone Bitart 1 tab Q4HP PRN PO 09/08/24 21:00 09/09/24 08:29 1 TAB Temazepam 15 mg QHSP PRN PO 09/08/24 21:00 09/08/24 23:35 15 MG Ondansetron HCl 4 mg Q4HP PRN IV 09/08/24 21:00 09/09/24 12:19 4 MG Acetaminophen 650 mg Q6HP PRN PO 09/08/24 21:00 Laboratory Results Laboratory Tests 09/08/24 14:51 09/09/24 06:26 Chemistry Test 09/09/24 06:26 Calcium Level 9.6 mg/dL (8.7-10.4) Urinalysis Test 09/09/24 08:00 Urine Color Light-yellow (Yellow) Urine Clarity Clear (Clear) Urine pH 5.0 (5.0-9.0) Urine Specific [place] 1.015 (1.001-1.035) Urine Protein Negative (Negative) Urine Ketones Negative (Negative) Urine Blood Negative /uL (Negative) Urine Nitrite Negative (Negative) Urine Bilirubin Negative (Negative) Urine Urobilinogen Normal mg/dL (Negative) Urine Leukocyte Esterase Negative /uL (Negative) Urine RBC 1 /hpf (0 - 4) Urine WBC 1 /hpf (0 - 5) Urine Squamous Epithelial Cells Few /hpf (<5) Urine Bacteria None seen /hpf (None Seen) Urine Glucose 4+ mg/dL (Normal) H Assessment/Plan Assessment/Plan Abdominal pain Constipation Type 2 diabetes Hypertension Dyslipidemia Heart failure Hypokalemia Plan The patient had a large bowel movement last night after the enema and lactulose Discontinue Jardiance for now Give another dose of lactulose 60 mL p.o. x1 Colace 100 mg b.i.d. Pain management with IV morphine for now Soft diet Plan discussed with: Patient Date of Service: Sep 09, 2024 Billing Provider: FIONA SAPP MD Common Visit Codes: NOT BILLABLE FIONA SAPP MD Sep 09, 2024 15:12
[2024-09-09] MEDS ORDERED: DEXTROSE (50%) 50ML SYRG IV PRN (15:15)
[2024-09-09] MEDS: DOCUSATE SOD 100 MG CAP PO ONE (15:15)
[2024-09-09] MEDS: LACTULOSE 20Gm/30ML SOLN PO ONE (16:11)
[2024-09-09] MEDS: ACCU-CHEK COMFORT CURVE STRIP VI SCH (16:18)
[2024-09-09] MEDS: InsuLIN REG 1unit/0.01ml Soln (100units/ml) SC SCH (16:18)
[2024-09-09] MEDS: MORPHINE SULFATE INJ 2 MG/ml SYRG IV PRN (16:27)
[2024-09-09] MEDS: DOCUSATE SOD 100 MG CAP PO SCH (22:22)
[2024-09-10 04:57] VITALS: BP 108/70; PULSE 83; RESP 18; TEMP 97.7; O2SAT 100
[2024-09-10 07:06] LABS: Basophils # (auto) 0.1 10 ^3/uL (0-0.2); Basophils % (auto) 0.5 % (0.0-2.0); Eosinophils # (auto) 0.1 10 ^3/uL (0-0.8); Eosinophils % (auto) 1.5 % (0.0-7.0); Hematocrit 41.3 % (36.0-46.0); Hemoglobin 13.6 g/dL (12.2-16.2); Lymphocytes # (auto) 3.6 10 ^3/uL (0.4-5.4); Lymphocytes % (auto) 35.7 % (10.0-50.0); Mean Corpuscular Hemoglobin 31.6 pg (28.0-32.0); Mean Corpuscular Volume 95.7 fL (80.0-100.0); Monocytes # (auto) 1.2 10 ^3/uL (0-1.3); Monocytes % (auto) 12.1 % (0.0-12.0); Neutrophils # (auto) 5.1 10 ^3/uL (1.6-8.6); Neutrophils % (auto) 50.2 % (37.0-80.0); Nucleated Red Blood Cells % 0.1 %; Platelet Count (auto) 276 10^3/uL (140-450); Red Blood Cells 4.31 10^6/uL (4.0-5.20); Red Cell Distribution Width 13.8 % (11.8-14.3); White Blood Cell 10.1 10^3/uL (4.4-10.8)
[2024-09-10 07:29] LABS: Alanine Aminotransferase 16 U/L (7-40); Albumin 4.4 g/dL (3.2-4.8); Alkaline Phosphatase 90 U/L (46-116); Anion Gap 4 (5-15); Aspartate Aminotransferase 15 U/L (13-40); BUN/Creatinine Ratio 13.8 (10.0-20.0); Blood Urea Nitrogen 12 mg/dL (9-23); Carbon Dioxide 30 mmol/L (20-31); Chloride 103 mmol/L (98-107); Glucose 103 mg/dL (74-106); Magnesium 2.4 mg/dL (1.6-2.6); Potassium 3.9 mmol/L (3.5-5.1); Sodium 137 mmol/L (136-145)
[2024-09-10 07:30] LABS: Bilirubin, Total 0.4 mg/dL (0.2-1.0); Total Protein 7.7 g/dL (5.7-8.2)
[2024-09-10 09:00] VITALS: BP 116/71; PULSE 82; RESP 17; TEMP 97.8; O2SAT 92
--- NOTE | 2024-09-10 10:25 | DVHDS2 ---
Discharge Summary Date of Admission Sep 08, 2024 at 20:49 Date of Discharge: Sep 10, 2024 Labs/Diagnostic Data: Laboratory Results Test 09/10/24 06:06 09/10/24 05:09 09/09/24 08:00 White Blood Count 10.1 10^3/uL (4.4-10.8) Red Blood Count 4.31 10^6/uL (4.0-5.20) Hemoglobin 13.6 g/dL (12.2-16.2) Hematocrit 41.3 % (36.0-46.0) Mean Corpuscular Volume 95.7 fL (80.0-100.0) Mean Corpuscular Hemoglobin 31.6 pg (28.0-32.0) Mean Corpuscular Hemoglobin Concent 33.0 g/dL (32.0-36.0) Red Cell Distribution Width 13.8 % (11.8-14.3) Platelet Count 276 10^3/uL (140-450) Mean Platelet Volume 8.5 fL (6.9-10.8) Neutrophils (%) (Auto) 50.2 % (37.0-80.0) Lymphocytes (%) (Auto) 35.7 % (10.0-50.0) Monocytes (%) (Auto) 12.1 % (0.0-12.0) Eosinophils (%) (Auto) 1.5 % (0.0-7.0) Basophils (%) (Auto) 0.5 % (0.0-2.0) Neutrophils # (Auto) 5.1 10 ^3/uL (1.6-8.6) Lymphocytes # (Auto) 3.6 10 ^3/uL (0.4-5.4) Monocytes # (Auto) 1.2 10 ^3/uL (0-1.3) Eosinophils # (Auto) 0.1 10 ^3/uL (0-0.8) Basophils # (Auto) 0.1 10 ^3/uL (0-0.2) Nucleated Red Blood Cells 0.1 % Sodium Level 137 mmol/L (136-145) Potassium Level 3.9 mmol/L (3.5-5.1) Chloride Level 103 mmol/L (98-107) Carbon Dioxide Level 30 mmol/L (20-31) Anion Gap 4 (5-15) Blood Urea Nitrogen 12 mg/dL (9-23) Creatinine 0.87 mg/dL (0.550-1.02) Glomerular Filtration Rate Calc 79 mL/min (>90) BUN/Creatinine Ratio 13.8 (10.0-20.0) Serum Glucose 103 mg/dL (74-106) Hemoglobin A1c 6.2 % A1C (<5.7) Calcium Level 10.0 mg/dL (8.7-10.4) Magnesium Level 2.4 mg/dL (1.6-2.6) Total Bilirubin 0.4 mg/dL (0.2-1.0) Aspartate Amino Transferase (AST) 15 U/L (13-40) Alanine Aminotransferase (ALT) 16 U/L (7-40) Alkaline Phosphatase 90 U/L (46-116) Total Protein 7.7 g/dL (5.7-8.2) Albumin 4.4 g/dL (3.2-4.8) POC Glucose 102 mg/dl (70-106) Urine Color Light-yellow (Yellow) Urine Clarity Clear (Clear) Urine pH 5.0 (5.0-9.0) Urine Specific [place] 1.015 (1.001-1.035) Urine Protein Negative (Negative) Urine Ketones Negative (Negative) Urine Blood Negative /uL (Negative) Urine Nitrite Negative (Negative) Urine Bilirubin Negative (Negative) Urine Urobilinogen Normal mg/dL (Negative) Urine Leukocyte Esterase Negative /uL (Negative) Urine RBC 1 /hpf (0 - 4) Urine WBC 1 /hpf (0 - 5) Urine Squamous Epithelial Cells Few /hpf (<5) Urine Bacteria None seen /hpf (None Seen) Urine Glucose 4+ mg/dL (Normal) Other Laboratory Tests 09/10/24 06:06 Brief Hx & Hospital Course: Final diagnoses: Constipation due to narcotics use and possibly due to Jardiance Abdominal pain due to constipation Type 2 diabetes Hypertension Dyslipidemia History of heart failure Hypokalemia 53-year-old female who was admitted for abdominal pain and was found to be in constipation. She said she started taking Jardiance lately She takes [place] at home but she has been taking it for years and she says she did not take more than usual Here she was given laxatives and an enema and she had several bowel movements which relieved her symptoms Today she is doing better No abdominal pain No nausea or vomiting CT scan of the abdomen and pelvis showed no significant abnormal findings Vital signs are stable Discharge the patient home to continue milk of magnesia at home Cut down on the [place] dose which is possible Hold Jardiance for now until she is seen by her primary care physician Follow up with PCP as soon as possible Condition at Discharge: Stable Final Diagnosis/Problems List Constipation due to narcotics constipation could be also due to Jardiance Discharge Disposition: Home SNF Discharge Will this Physician continue t: No Discharge Instruct/Medications Diet: Consistent carbohydrate, Cardiac 2g Na,low cholest Activity: No Restrictions, As Tolerated Follow Up/Referral: PCP as soon as possible Medications: Discontinue Jardiance Resume other home medications Take milk of magnesia [id number] daily Cut down on [place] as much as possible Discharge Statement: "Patient was advised to return to the ER or call 911 if any headaches, dizziness, shortness of breath, chest pain, abdominal pain, bleeding, fevers, or worsening of medical condition. Patient was counseled about treatment plan, medications, possible side effects, patientverbalized understanding. All questions were answered to the best of my ability. This discharge took greater then 30 minutes in planning, reviewing documentation, counseling the patient, and discussing with other team members." ASSESSMENT ASSESSMENT Assessment Constipation due to narcotics constipation could be also due to Jardiance Date of Service: Sep 10, 2024 Billing Provider: FIONA SAPP MD Common Visit Codes: NOT BILLABLE FIONA SAPP MD Sep 10, 2024 10:25
[2024-09-10 13:00] VITALS: BP 146/95; PULSE 88; RESP 19; TEMP 98; O2SAT 100
== END 2024-09-10 13:41 | disposition home or self-care (01) | DRG 392 ==
LOC: ER 13:39 → OVERFLOW 20:49 → WEST WING 22:19
PROVIDERS: ADMIT Nurse Practitioner; ATTEND Internal Medicine Geriatric Medicine
DX: K59.03 Drug induced constipation (principal); G89.29 Other chronic pain; E11.9 Type 2 diabetes mellitus without complications; I50.9 Heart failure, unspecified; I11.0 Hypertensive heart disease with heart failure; F17.210 Nicotine dependence, cigarettes, uncomplicated; E87.6 Hypokalemia; E78.5 Hyperlipidemia, unspecified; T38.3X5A Adverse effect of insulin and oral hypoglycemic [antidiabetic] drugs, initial encounter; T40.605A Adverse effect of unspecified narcotics, initial encounter; K29.70 Gastritis, unspecified, without bleeding; Z79.84 Long term (current) use of oral hypoglycemic drugs; Z79.891 Long term (current) use of opiate analgesic; Z79.4 Long term (current) use of insulin; Z82.49 Family history of ischemic heart disease and other diseases of the circulatory system; Z87.442 Personal history of urinary calculi; Y92.89 Other specified places as the place of occurrence of the external cause
CPT/HCPCS: 36415; 74018; 80048; 80053; 81001; 82962; 83036; 83735; 85025; G0378; J2405

== ENCOUNTER 2025-01-27 19:42 | Inpatient (IN) | payer OTHER ==
[~2025-01-27] VITALS: Ht 160 cm; Wt 64.4 kg
[~2025-01-27 19:42] MED LIST changes: +ASPI81CH59 PO; +CARV3.1240 PO; -CIPR-173 PO; +HYDR-4072 PO; -METR-344 PO; +PANT40TA2 PO; +QUET1TAB11 PO
--- NOTE | 2025-01-27 20:11 | ED.PDOC ---
History of Present Illness HPI Comments 54-year-old female presents with a chief complaint of abdominal pain and nausea x onset yesterday. Patient mentions that her pain is localized to her epigastric region, radiating to her backside, describes as cramping, and rates her pain a 10/10. Patient mentions that she has had pancreatitis before and knows that drinking alcohol induces it. Patient mentions that she had alcohol last night and is now having similar pancreatitis pain. No other symptoms or modifying factors present at this time. Time Seen by MD: 20:04 Primary Care Provider: MADONNA Reviewed Notes: Nurses Notes, Medications, Allergies Allergies: Coded Allergies: NO KNOWN ALLERGIES (Unverified , 03/04/16) Home Meds Active Scripts Pantoprazole Sodium Sesquihydr (Protonix) 40 Mg Tab, 40 MG PO DAILY for 7 Days, #7 TAB Prov:ODESSA SULLIVAN MD 09/08/24 Reported Medications Quetiapine Fumerate (QUETIAPINE FUMARATE) 25 Mg Tab, 1 TAB PO HS 09/08/24 Aspirin (Aspirin Low Dose) 81 Mg Chw, 81 MG PO DAILY, TAB.CHEW 09/08/24 Hydrocodone-Acetaminophen (Hydrocodone/Acetaminophen 10-325 mg) 1 Tab Tab, 1 TAB PO PRN for PAIN SCALE 7 THRU 10, TAB 09/08/24 Carvedilol (Carvedilol) 3.125 Mg Tab, 1 TAB PO BID 09/08/24 Atorvastatin Calcium (ATORVASTATIN CALCIUM) 10 Mg Tab, 1 TAB PO DAILY, #30 TAB 5 Refills 06/24/23 Bupropion Hcl (WELLBUTRIN TABLET) 100 Mg Tb, 100 MG PO DAILY, TAB 03/31/21 Information Source: Patient Mode of Arrival: Ambulatory Severity: Moderate Timing: Days Duration: Since onset Prehospital treatment: None Past Medical History PAST MEDICAL HISTORY: CHF, DM, High Lipids, HTN, Kidney Stones Surgical History: 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 Family History Family History: Family hx of HTN Family History (Other): fibromyalgia Social History Smoker: Cigarettes, Less Than 1 Pack/Day Alcohol: Occasionally Drugs: Marijuana Lives In: Home Constitutional: denies: chills, diaphoresis, fatigue, fever, malaise, sweats, weakness, others EENTM: denies: blurred vision, double vision, ear bleeding, ear discharge, ear drainage, ear pain, ear ringing, eye pain, eye redness, hearing loss, mouth pain, mouth swelling, nasal discharge, nose bleeding, nose congestion, nose pain, photophobia, tearing, throat pain, throat swelling, voice changes, others Respiratory: denies: cough, hemoptysis, orthopnea, SOB at rest, shortness of breath, SOB with excertion, stridor, wheezing, others Cardiovascular: denies: chest pain, dizzy spells, diaphoresis, Dyspnea on exertion, edema, irregular heart beat, left arm pain, lightheadedness, palpitations, PND, syncope, others Gastrointestinal: reports: abdominal pain, nausea; denies: abdomen distended, blood streaked bowels, constipated, diarrhea, dysphagia, difficulty swallowing, hematemesis, melena, poor appetite, poor fluid intake, rectal bleeding, rectal pain, vomiting, others Genitourinary: denies: abnormal vagina bleeding, burning, dyspareunia, dysuria, flank pain, frequency, hematuria, incontinence, pain, , vagina discharge, urgency, others Neurological: denies: dizziness, fainting, headache, left sided numbness, left sided weakness, numbness, paresthesia, pre-existing deficit, right sided numbness, right sided weakness, seizure, speech problems, tingling, tremors, weakness, others Musculoskeletal: denies: back pain, gout, joint pain, joint swelling, muscle pain, muscle stiffness, neck pain, others Integumetry: denies: bruises, change in color, change in hair/nails, dryness, laceration, lesions, lumps, rash, wounds, others Allergic/Immunocompromised: denies: Difficulty Healing, Frequent Infections, Hives, Itching, others Hematologic/Lymphatic: denies: anemia, blood clots, easy bleeding, easy bruising, swollen glands, others Endocrine: denies: excessive hunger, excessive sweating, excessive thirst, excessive urination, flushing, intolerance to cold, intolerance to heat, unexplained weight gain, unexplained weight loss, others Psychiatric: denies: anxiety, bipolar disorder, depression, hopeless, panic disorder, schizophrenia, sleepless, suicidal, others All Other Systems: Reviewed and Negative Physical Exam General Appearance: Moderate Distress HEENT: Normal ENT Inspection, Pharynx Normal, TMs Normal Neck: Full Range of Motion, Non-Tender, Normal, Normal Inspection Respiratory: Chest Non-Tender, Lungs Clear, No Accessory Muscle Use, No Respiratory Distress, Normal Breath Sounds Cardiovascular: No Edema, No JVD, No Murmur, No Gallop, Normal Peripheral Pulses, Regular Rate/Rhythm Breast Exam: Deferred Gastrointestinal: Epigastric, No Organomegaly, No Pulsatile Mass, Normal Bowel Sounds, Soft, Tenderness Genitalia: Deferred Pelvic: Deferred Rectal: Deferred Extremities: No calf tenderness, Normal capillary refill, Normal inspection, Normal range of motion, Non-tender, No pedal edema Musculoskeletal : Apperance: Normal Neurologic: Alert, clinical implementation specialist II-XII nml as Tested, No Motor Deficits, Normal Affect, Normal Mood, No Sensory Deficits Cerebellar Function: Normal Reflexes: Normal Skin: Dry, Normal Color, Warm Lymphatic: No Adenopathy Was a procedure done? Was a procedure done?: No Differential Dx Considerations may include: Pancreatitis, cholecystitis X-Ray, Labs, Meds, VS Vital Signs Date Time Temp Pulse Resp B/P (MAP) Pulse Ox O2 Delivery O2 Flow Rate FiO2 01/27/25 20:15 98.7 119 18 155/94 (114) 100 98.7 Lab Test 01/27/25 20:40 01/27/25 20:16 Range/Units White Blood Count 12.8 H 4.4-10.8 10^3/uL Red Blood Count 4.38 4.0-5.20 10^6/uL Hemoglobin 13.9 12.2-16.2 g/dL Hematocrit 41.8 36.0-46.0 % Mean Corpuscular Volume 95.5 80.0-100.0 fL Mean Corpuscular Hemoglobin 31.7 28.0-32.0 pg Mean Corpuscular Hemoglobin Concent 33.2 32.0-36.0 g/dL Red Cell Distribution Width 14.3 11.8-14.3 % Platelet Count 280 140-450 10^3/uL Mean Platelet Volume 8.6 6.9-10.8 fL Neutrophils (%) (Auto) 58.4 37.0-80.0 % Lymphocytes (%) (Auto) 30.0 10.0-50.0 % Monocytes (%) (Auto) 9.8 0.0-12.0 % Eosinophils (%) (Auto) 0.7 0.0-7.0 % Basophils (%) (Auto) 1.1 0.0-2.0 % Neutrophils # (Auto) 7.5 1.6-8.6 10 ^3/uL Lymphocytes # (Auto) 3.8 0.4-5.4 10 ^3/uL Monocytes # (Auto) 1.3 0-1.3 10 ^3/uL Eosinophils # (Auto) 0.1 0-0.8 10 ^3/uL Basophils # (Auto) 0.1 0-0.2 10 ^3/uL Nucleated Red Blood Cells 0.1 % Sodium Level 140 136-145 mmol/L Potassium Level 3.8 3.5-5.1 mmol/L Chloride Level 106 98-107 mmol/L Carbon Dioxide Level 30 20-31 mmol/L Anion Gap 4 L 5-15 Blood Urea Nitrogen 12 9-23 mg/dL Creatinine 0.91 0.550-1.02 mg/dL Glomerular Filtration Rate Calc 75 >90 mL/min BUN/Creatinine Ratio 13.2 10.0-20.0 Serum Glucose 116 H 74-106 mg/dL Calcium Level 10.1 8.7-10.4 mg/dL Total Bilirubin 0.4 0.2-1.0 mg/dL Aspartate Amino Transferase (AST) 17 13-40 U/L Alanine Aminotransferase (ALT) 15 7-40 U/L Alkaline Phosphatase 99 46-116 U/L Total Protein 8.3 H 5.7-8.2 g/dL Albumin 5.1 H 3.2-4.8 g/dL Lipase 92 H 12-53 U/L Urine Color Light-yellow Yellow Urine Clarity Clear Clear Urine pH 6.0 5.0-9.0 Urine Specific [place] 1.015 1.001-1.035 Urine Protein Negative Negative Urine Ketones Negative Negative Urine Blood Negative Negative /uL Urine Nitrite Negative Negative Urine Bilirubin Negative Negative Urine Urobilinogen Normal Negative mg/dL Urine Leukocyte Esterase 1+ Negative /uL Urine RBC 1 0 - 4 /hpf Urine Microscopic WBC 4 0-5 /HPF Urine Squamous Epithelial Cells Few <5 /hpf Urine Bacteria None seen None Seen /hpf Urine Glucose Normal Normal mg/dL The ultrasound of the gallbladder was done and is pending results The CBC shows an elevated white blood cell count of 12.8 The rest of the CBC is within normal limits The chemistry panel shows a lipase of 92 The urine test is negative The patient was being admitted with a diagnosis of acute pancreatitis. The patient was given Protonix 40 mg IV push The patient was given morphine 4 mg IV push The patient was given Zofran 4 mg IV push The patient was being admitted at this time Images Reviewed?: Images reviewed and evaluated by me Time of 1ST Reevaluation: 20:34 Reevaluation 1ST: Unchanged Patient Education/Counseling: Diagnosis, Treatment, Prognosis Family Education/Counseling: No Family Present Departure 1 Departure Time of Disposition: 22:03 Impression: Primary Impression: Intractable abdominal pain Additional Impression: Acute pancreatitis Qualified Codes: K85.20 - Alcohol induced acute pancreatitis without necrosis or infection Disposition: ADMITTED INPATIENT Admit to: Med Surg Condition: Fair Critical Care Note Critical Care Time?: No Stability Stability form required: Yes Unstable for transfer: ED Physician Assesment (Clinical assesment) Heart Score Heart Score: Heart Score Response (Comments) Value History N/A 0 EKG N/A 0 Age N/A 0 Risk Factors N/A 0 Troponin N/A 0 Total 0 I personally scribed for SOPHIA SPAIN MD ([email or web address]) on 01/27/25 at 20:11. Electronically submitted by Dhruv Cardozo ([email or web address]). SOPHIA SPAIN MD Jan 27, 2025 20:11
[2025-01-27 20:39] LABS: Urine Bacteria None Seen /hpf (None Seen)
[2025-01-27 21:07] LABS: Alanine Aminotransferase 15 U/L (7-40); Alkaline Phosphatase 99 U/L (46-116); Anion Gap 4 (5-15); Aspartate Aminotransferase 17 U/L (13-40); BUN/Creatinine Ratio 13.2 (10.0-20.0); Blood Urea Nitrogen 12 mg/dL (9-23); Calcium 10.1 mg/dL (8.7-10.4); Carbon Dioxide 30 mmol/L (20-31); Chloride 106 mmol/L (98-107); Potassium 3.8 mmol/L (3.5-5.1); Sodium 140 mmol/L (136-145)
[2025-01-27 21:08] LABS: Bilirubin, Total 0.4 mg/dL (0.2-1.0)
[2025-01-27 21:16] LABS: Basophils # (auto) 0.1 10 ^3/uL (0-0.2); Basophils % (auto) 1.1 % (0.0-2.0); Eosinophils # (auto) 0.1 10 ^3/uL (0-0.8); Eosinophils % (auto) 0.7 % (0.0-7.0); Hematocrit 41.8 % (36.0-46.0); Hemoglobin 13.9 g/dL (12.2-16.2); Lymphocytes # (auto) 3.8 10 ^3/uL (0.4-5.4); Mean Corpuscular Hemoglobin 31.7 pg (28.0-32.0); Mean Corpuscular Hgb Conc. 33.2 g/dL (32.0-36.0); Mean Corpuscular Volume 95.5 fL (80.0-100.0); Monocytes # (auto) 1.3 10 ^3/uL (0-1.3); Monocytes % (auto) 9.8 % (0.0-12.0); Neutrophils # (auto) 7.5 10 ^3/uL (1.6-8.6); Neutrophils % (auto) 58.4 % (37.0-80.0); Nucleated Red Blood Cells % 0.1 %; Platelet Count (auto) 280 10^3/uL (140-450); Red Blood Cells 4.38 10^6/uL (4.0-5.20); Red Cell Distribution Width 14.3 % (11.8-14.3); White Blood Cell 12.8 10^3/uL (4.4-10.8)
[2025-01-27 21:23] LABS: Urine Blood Negative /uL (Negative); Urine Clarity Clear (Clear); Urine Color Light-Yellow (Yellow); Urine Protein, UAD Negative (Negative); Urine Specific Gravity 1.015 (1.001-1.035); Urine Squamous Epithelial Cell FEW /hpf (<5); Urine Urobilinogen Normal (Negative); Urine WBC 4 /HPF (0-5)
[2025-01-27 21:26] LABS: Albumin 5.1 g/dL (3.2-4.8); Glucose 116 mg/dL (74-106); Lipase 92 U/L (12-53); Total Protein 8.3 g/dL (5.7-8.2)
--- NOTE | 2025-01-27 22:17 | DVH ---
INDICATION: pain TECHNIQUE: Multiple real-time sonographic images were obtained of the right upper quadrant. COMPARISON: None FINDINGS: No abnormality is identified in the liver. No intrahepatic or extrahepatic biliary ductal dilatation with the common bile duct measuring 3 mm. Gallbladder appears unremarkable with no evidence of stones or wall thickening. Right kidney and visualized pancreas appear unremarkable. IMPRESSION: No abnormality demonstrated.
[2025-01-27] MEDS ORDERED: ACETAMINOPHEN 325 MG TAB PO PRN (22:45)
[2025-01-27] MEDS ORDERED: ONDANSETRON HCL 4 MG/2 ML VIAL IV PRN (22:45)
[2025-01-27] MEDS ORDERED: DEXTROSE (50%) 50ML SYRG IV PRN (22:45)
[2025-01-27 22:50] VITALS: PULSE 104; RESP 16; O2SAT 97
[2025-01-27] MEDS: ONDANSETRON HCL 4 MG/2 ML VIAL IV ONE (23:14)
[2025-01-27] MEDS: MORPHINE SULFATE 4 MG/ML SYR/VIAL IV ONE (23:14)
[2025-01-27] MEDS: PANTOPRAZOLE 40 MG/10 ML VIAL INJ IV ONE (23:15)
[2025-01-27] MEDS: SODIUM CHLORIDE 0.9% 500 ML IV ONE (23:15)
[2025-01-27 23:46] VITALS: RESP 14
[2025-01-28] VITALS (8 sets, daily range): BP systolic 96–159; BP diastolic 49–101; PULSE 64–99; RESP 16–20; TEMP 97.5–98.2; O2SAT 91–100
--- NOTE | 2025-01-28 00:09 | DVHHP2 ---
History of Present Illness Reason for Visit: Abdominal pain History of Present Illness 54-year-old female presents for evaluation of abdominal pain. Patient with a history of pancreatitis reports drinking alcohol yesterday. She reports having episodes similar to this prior when consuming alcohol. She reports diffuse abdominal pain with associated nausea. No diarrhea. No fever. No other acute complaints. Past Medical History Hypertension, dyslipidemia, diabetes mellitus, CHF Past Surgical History BTL Family History Noncontributory Smoke: <1 pack per day ALCOHOL: occassional Drugs: Marijuana Lives: with Family Review of Systems Review of Systems Review of systems are currently negative otherwise addressed in HPI. Allergies: Coded Allergies: NO KNOWN ALLERGIES (Unverified , 03/04/16) Medications Current Medications Medications Dose Ordered Sig/Sowmya Route Start Time Stop Time Status Last Admin Dose Admin Pantoprazole Sodium 40 mg DAILY@0600 PO 01/28/25 06:00 Carvedilol 3.125 mg Q12HR PO 01/28/25 10:00 Atorvastatin Calcium 10 mg HS PO 01/28/25 22:00 Acetaminophen/ Hydrocodone Bitart 1 tab Q4HP PRN PO 01/27/25 22:45 Ondansetron HCl 4 mg Q4HP PRN IV 01/27/25 22:45 Acetaminophen 650 mg Q6HP PRN PO 01/27/25 22:45 Morphine Sulfate 2 mg Q6HPRN PRN IV 01/27/25 22:45 Diagnostic Test (Pha) 1 strip Q6HR 01/28/25 00:00 Insulin Human Regular Q6HR SC 01/28/25 00:00 Dextrose 50 ml UD PRN IV 01/27/25 22:45 Exam Vital Signs Vital Signs Date Time Temp Pulse Resp B/P (MAP) Pulse Ox O2 Delivery O2 Flow Rate FiO2 01/27/25 23:14 104 13 154/89 01/27/25 22:50 98.4 97 98.4 01/27/25 22:50 Room Air* 0 21 Exam Gen: 54-year-old female in mild distress Skin: Warm, dry, normal color and texture, no rash. HEENT: Normocephalic atraumatic, mucous membranes moist and pink. Neck: Cervical and supraclavicular nodes normal without enlargement, trachea is midline, thyroid gland is normal without masses. Pulmonary: Clear to auscultation and percussion bilaterally. Cardiac: Regular rate and rhythm. No murmur Abdomen: Soft, diffuse tenderness, nondistended, bowel sounds present all 4 quadrants, no guarding, no rigidity, no organomegaly. Extremities: No cyanosis, clubbing, no edema Neuro: Cranial nerves II through XII grossly intact, normal affect and speech, no focal motor deficits. Labs/Xrays ORDERING PHYSICIAN: SOPHIA SPAIN MD PROCEDURE(s): GBUS - GALLBLADDER REASON: pain ORDER NUMBER(s): [id number], ACCESSION NUMBER(s): [id number] INDICATION: pain TECHNIQUE: Multiple real-time sonographic images were obtained of the right upper quadrant. COMPARISON: None FINDINGS: No abnormality is identified in the liver. No intrahepatic or extrahepatic bi liary ductal dilatation with the common bile duct measuring 3 mm. Gallbladder appears unremarkable with no evidence of stones or wall thickening. Right kidney and visualized pancreas appear unremarkable. IMPRESSION: No abnormality demonstrated. Labs Test 01/27/25 20:40 01/27/25 20:16 Range/Units White Blood Count 12.8 H 4.4-10.8 10^3/uL Red Blood Count 4.38 4.0-5.20 10^6/uL Hemoglobin 13.9 12.2-16.2 g/dL Hematocrit 41.8 36.0-46.0 % Mean Corpuscular Volume 95.5 80.0-100.0 fL Mean Corpuscular Hemoglobin 31.7 28.0-32.0 pg Mean Corpuscular Hemoglobin Concent 33.2 32.0-36.0 g/dL Red Cell Distribution Width 14.3 11.8-14.3 % Platelet Count 280 140-450 10^3/uL Mean Platelet Volume 8.6 6.9-10.8 fL Neutrophils (%) (Auto) 58.4 37.0-80.0 % Lymphocytes (%) (Auto) 30.0 10.0-50.0 % Monocytes (%) (Auto) 9.8 0.0-12.0 % Eosinophils (%) (Auto) 0.7 0.0-7.0 % Basophils (%) (Auto) 1.1 0.0-2.0 % Neutrophils # (Auto) 7.5 1.6-8.6 10 ^3/uL Lymphocytes # (Auto) 3.8 0.4-5.4 10 ^3/uL Monocytes # (Auto) 1.3 0-1.3 10 ^3/uL Eosinophils # (Auto) 0.1 0-0.8 10 ^3/uL Basophils # (Auto) 0.1 0-0.2 10 ^3/uL Nucleated Red Blood Cells 0.1 % Sodium Level 140 136-145 mmol/L Potassium Level 3.8 3.5-5.1 mmol/L Chloride Level 106 98-107 mmol/L Carbon Dioxide Level 30 20-31 mmol/L Anion Gap 4 L 5-15 Blood Urea Nitrogen 12 9-23 mg/dL Creatinine 0.91 0.550-1.02 mg/dL Glomerular Filtration Rate Calc 75 >90 mL/min BUN/Creatinine Ratio 13.2 10.0-20.0 Serum Glucose 116 H 74-106 mg/dL Calcium Level 10.1 8.7-10.4 mg/dL Total Bilirubin 0.4 0.2-1.0 mg/dL Aspartate Amino Transferase (AST) 17 13-40 U/L Alanine Aminotransferase (ALT) 15 7-40 U/L Alkaline Phosphatase 99 46-116 U/L Total Protein 8.3 H 5.7-8.2 g/dL Albumin 5.1 H 3.2-4.8 g/dL Lipase 92 H 12-53 U/L Urine Color Light-yellow Yellow Urine Clarity Clear Clear Urine pH 6.0 5.0-9.0 Urine Specific [place] 1.015 1.001-1.035 Urine Protein Negative Negative Urine Ketones Negative Negative Urine Blood Negative Negative /uL Urine Nitrite Negative Negative Urine Bilirubin Negative Negative Urine Urobilinogen Normal Negative mg/dL Urine Leukocyte Esterase 1+ Negative /uL Urine RBC 1 0 - 4 /hpf Urine Microscopic WBC 4 0-5 /HPF Urine Squamous Epithelial Cells Few <5 /hpf Urine Bacteria None seen None Seen /hpf Urine Glucose Normal Normal mg/dL Assessment/Plan Assessment/Plan Assessment Acute abdominal pain Alcoholic pancreatitis Diabetes mellitus Plan Admit the patient to [facility] to the hospitalist Clear liquid diet Pain management IV fluids Continue treatment per orders. Plan discussed with: Patient My Orders Orders - EVAN CHACKO AGACNP Procedure Category Date Status Time Pantoprazole Tablet PHA 01/28/25 In Process (Protonix Tablet) 06:00 Basic Metabolic Panel LAB 01/28/25 Verified 04:00 Carvedilol Tablet PHA 01/28/25 In Process (Coreg Tablet) 10:00 Atorvastatin (Lipitor) PHA 01/28/25 In Process 22:00 Lipase LAB 01/28/25 Verified 04:00 Admit ADMIT 01/27/25 Transmitted 22:31 Hydrocodone-Acet PHA 01/27/25 In Process 5/325mg Tab (Bricelyn 22:45 Ondansetron Hcl PHA 01/27/25 In Process (Zofran) 22:45 Complete Blood Count LAB 01/28/25 Verified 04:00 Condition: Stable ONELIA 01/27/25 In Process 22:31 Acetaminophen Tablet PHA 01/27/25 In Process (Tylenol Tablet) 22:45 Clear Liq Diet DIET 01/28/25 Transmitted Breakfast Bedrest With Bathroom ONELIA 01/27/25 In Process Privileg 22:31 Morphine Sulfate PHA 01/27/25 In Process Injection 22:45 Glucose Blood PHA 01/28/25 In Process (Accu-Chek Comfort 00:00 Insulin R (Human) PHA 01/28/25 In Process (Insulin R) 00:00 Dextrose 50% Syringe PHA 01/27/25 In Process 22:45 Date of Service: Jan 27, 2025 Billing Provider: EVAN CHACKO Common Visit Codes: [id number] INP/OBS CARE (HIGH) EVAN CHACKO Jan 28, 2025 00:09
[2025-01-28] MEDS: InsuLIN REG 1unit/0.01ml Soln (100units/ml) SC SCH ×2 (00:21→17:00)
[2025-01-28] MEDS: ACCU-CHEK COMFORT CURVE STRIP VI SCH ×2 (00:22→17:02)
[2025-01-28] MEDS: MORPHINE SULFATE INJ 2 MG/ml SYRG IV PRN (02:00)
[2025-01-28] MEDS: HYDROcodone-ACET 5/325MG TAB PO PRN (05:22)
[2025-01-28] MEDS: PANTOPRAZOLE 40 MG TAB PO SCH (05:31)
[2025-01-28 05:41] LABS: Potassium 3.7 mmol/L (3.5-5.1); Sodium 141 mmol/L (136-145)
[2025-01-28 05:42] LABS: Anion Gap 2 (5-15); Carbon Dioxide 31 mmol/L (20-31)
[2025-01-28 05:43] LABS: Calcium 9.6 mg/dL (8.7-10.4)
[2025-01-28 05:46] LABS: Basophils # (auto) 0.1 10 ^3/uL (0-0.2); Basophils % (auto) 0.7 % (0.0-2.0); Eosinophils # (auto) 0.1 10 ^3/uL (0-0.8); Eosinophils % (auto) 1.1 % (0.0-7.0); Hematocrit 38.8 % (36.0-46.0); Hemoglobin 12.9 g/dL (12.2-16.2); Lymphocytes # (auto) 3.3 10 ^3/uL (0.4-5.4); Lymphocytes % (auto) 30.8 % (10.0-50.0); Mean Corpuscular Hemoglobin 31.8 pg (28.0-32.0); Mean Corpuscular Hgb Conc. 33.1 g/dL (32.0-36.0); Mean Corpuscular Volume 96.2 fL (80.0-100.0); Monocytes # (auto) 1.1 10 ^3/uL (0-1.3); Monocytes % (auto) 10.6 % (0.0-12.0); Neutrophils % (auto) 56.8 % (37.0-80.0); Nucleated Red Blood Cells % 0.1 %; Platelet Count (auto) 243 10^3/uL (140-450); Red Blood Cells 4.04 10^6/uL (4.0-5.20); Red Cell Distribution Width 14.1 % (11.8-14.3); White Blood Cell 10.6 10^3/uL (4.4-10.8)
[2025-01-28 05:47] LABS: BUN/Creatinine Ratio 14.8 (10.0-20.0); Blood Urea Nitrogen 12 mg/dL (9-23); Glucose 88 mg/dL (74-106)
[2025-01-28 05:54] LABS: Chloride 108 mmol/L (98-107); Lipase 65 U/L (12-53)
[2025-01-28] MEDS: CARVEDILOL 3.125 MG TAB PO SCH (09:29)
--- NOTE | 2025-01-28 14:58 | DVHPN2 ---
Subjective 54-year-old female with a history of alcoholic pancreatitis in the past came back after she had a drink of alcohol which resulted in abdominal pain and nausea Her lipase here was 92 She was admitted on clear liquid diet She feels better today Changes from previous H/P or p: Changes Objective Vitals Vital Signs Date Time Temp Pulse Resp B/P (MAP) Pulse Ox O2 Delivery O2 Flow Rate FiO2 01/28/25 13:30 64 16 124/99 01/28/25 09:30 97.8 99 97.8 01/28/25 08:00 Room Air* 0 21 Intake/Output Intake and Output 01/28/25 07:00 Intake Total 300 ml Balance 300 ml Intake Oral 300 ml General Appearance: Alert, Oriented X3, Cooperative, No acute distress Lungs: Clear to auscultation, Normal air movement Cardiovascular: Regular rate, Normal S1, Normal S2 Abdomen: Normal bowel sounds, Soft, No tenderness Extremities: No edema Medications Current Medications Medications Dose Ordered Sig/Sowmya Route Start Time Stop Time Status Last Admin Dose Admin Pantoprazole Sodium 40 mg DAILY@0600 PO 01/28/25 06:00 01/28/25 05:31 40 MG Carvedilol 3.125 mg Q12HR PO 01/28/25 10:00 01/28/25 09:29 3.125 MG Atorvastatin Calcium 10 mg HS PO 01/28/25 22:00 Acetaminophen/ Hydrocodone Bitart 1 tab Q4HP PRN PO 01/27/25 22:45 01/28/25 05:22 1 TAB Ondansetron HCl 4 mg Q4HP PRN IV 01/27/25 22:45 Acetaminophen 650 mg Q6HP PRN PO 01/27/25 22:45 Morphine Sulfate 2 mg Q6HPRN PRN IV 01/27/25 22:45 01/28/25 12:52 2 MG Diagnostic Test (Pha) 1 strip Q6HR 01/28/25 00:00 01/28/25 12:22 1 STRIP Insulin Human Regular Q6HR SC 01/28/25 00:00 01/28/25 00:21 2 UNITS Dextrose 50 ml UD PRN IV 01/27/25 22:45 Laboratory Results Laboratory Tests 01/28/25 04:51 Chemistry Test 01/27/25 20:40 01/28/25 04:51 Albumin 5.1 g/dL (3.2-4.8) H Calcium Level 10.1 mg/dL (8.7-10.4) 9.6 mg/dL (8.7-10.4) Total Protein 8.3 g/dL (5.7-8.2) H Lipid panel Test 01/27/25 20:40 01/28/25 04:51 Lipase 92 U/L (12-53) H 65 U/L (12-53) H LFT Test 01/27/25 20:40 Alanine Aminotransferase (ALT) 15 U/L (7-40) Alkaline Phosphatase 99 U/L (46-116) Aspartate Amino Transferase (AST) 17 U/L (13-40) Total Bilirubin 0.4 mg/dL (0.2-1.0) Urinalysis Test 01/27/25 20:16 Urine Color Light-yellow (Yellow) Urine Clarity Clear (Clear) Urine pH 6.0 (5.0-9.0) Urine Specific [place] 1.015 (1.001-1.035) Urine Protein Negative (Negative) Urine Ketones Negative (Negative) Urine Blood Negative /uL (Negative) Urine Nitrite Negative (Negative) Urine Bilirubin Negative (Negative) Urine Urobilinogen Normal mg/dL (Negative) Urine Leukocyte Esterase 1+ /uL (Negative) Urine RBC 1 /hpf (0 - 4) Urine Microscopic WBC 4 /HPF (0-5) Urine Squamous Epithelial Cells Few /hpf (<5) Urine Bacteria None seen /hpf (None Seen) Urine Glucose Normal mg/dL (Normal) Assessment/Plan Assessment/Plan Abdominal pain Acute on chronic pancreatitis, alcoholic History of congestive heart failure Chronic pain syndrome Mixed hyperlipidemia Prediabetic Hypertension Plan Resume the home medications including Seroquel 50 mg at bedtime Bowman p.r.n. for the pain Advance the diet to soft mechanical Monitor closely The rest of the management will depend on the hospital course Get an echocardiogram to evaluate her heart function Plan discussed with: Patient, Spouse Date of Service: Jan 28, 2025 Billing Provider: FIONA SAPP MD Common Visit Codes: NOT BILLABLE FIONA SAPP MD Jan 28, 2025 14:58
[2025-01-28] MEDS: ATORVASTATIN 20 MG TAB PO SCH (20:42)
[2025-01-28] MEDS: QUEtiapine FUMARATE 25 MG TAB PO SCH (20:42)
[2025-01-29] VITALS (7 sets, daily range): BP systolic 122–173; BP diastolic 40–96; PULSE 77–96; RESP 18–21; TEMP 36.6; O2SAT 90–100
[2025-01-29 06:52] LABS: Alanine Aminotransferase 14 U/L (7-40); Alkaline Phosphatase 80 U/L (46-116); Anion Gap 7 (5-15); Aspartate Aminotransferase 21 U/L (13-40); BUN/Creatinine Ratio 14.5 (10.0-20.0); Blood Urea Nitrogen 11 mg/dL (9-23); Calcium 9.2 mg/dL (8.7-10.4); Carbon Dioxide 27 mmol/L (20-31); Glucose 102 mg/dL (74-106); Magnesium 1.8 mg/dL (1.6-2.6); Potassium 4.2 mmol/L (3.5-5.1); Sodium 142 mmol/L (136-145); Total Protein 6.7 g/dL (5.7-8.2); Triglycerides 57 mg/dL (< 150)
[2025-01-29 06:53] LABS: Albumin 4.1 g/dL (3.2-4.8); Bilirubin, Total 0.3 mg/dL (0.2-1.0); Cholesterol 195 mg/dL (< 200); HDL Cholesterol 55 mg/dL (40-59)
[2025-01-29 06:55] LABS: Chloride 108 mmol/L (98-107); LDL Cholesterol 133 mg/dL (< 100)
[2025-01-29 07:06] LABS: Lipase 49 U/L (12-53)
[2025-01-29] MEDS: hydrALAZINE HCL 20 MG/ML VL IV PRN (12:03)
--- NOTE | 2025-01-29 15:42 | DVHDS2 ---
Discharge Summary Date of Admission Jan 27, 2025 at 22:31 Date of Discharge: Jan 29, 2025 Labs/Diagnostic Data: Laboratory Results Test 01/29/25 13:00 01/29/25 05:04 01/28/25 04:51 01/27/25 20:16 POC Glucose 111 mg/dl (70-106) Sodium Level 142 mmol/L (136-145) Potassium Level 4.2 mmol/L (3.5-5.1) Chloride Level 108 mmol/L (98-107) Carbon Dioxide Level 27 mmol/L (20-31) Anion Gap 7 (5-15) Blood Urea Nitrogen 11 mg/dL (9-23) Creatinine 0.76 mg/dL (0.550-1.02) Glomerular Filtration Rate Calc 92 mL/min (>90) BUN/Creatinine Ratio 14.5 (10.0-20.0) Serum Glucose 102 mg/dL (74-106) Calcium Level 9.2 mg/dL (8.7-10.4) Magnesium Level 1.8 mg/dL (1.6-2.6) Total Bilirubin 0.3 mg/dL (0.2-1.0) Aspartate Amino Transferase (AST) 21 U/L (13-40) Alanine Aminotransferase (ALT) 14 U/L (7-40) Alkaline Phosphatase 80 U/L (46-116) Total Protein 6.7 g/dL (5.7-8.2) Albumin 4.1 g/dL (3.2-4.8) Triglycerides Level 57 mg/dL (< 150) Cholesterol Level 195 mg/dL (< 200) LDL Cholesterol 133 mg/dL (< 100) HDL Cholesterol 55 mg/dL (40-59) Lipase 49 U/L (12-53) White Blood Count 10.6 10^3/uL (4.4-10.8) Red Blood Count 4.04 10^6/uL (4.0-5.20) Hemoglobin 12.9 g/dL (12.2-16.2) Hematocrit 38.8 % (36.0-46.0) Mean Corpuscular Volume 96.2 fL (80.0-100.0) Mean Corpuscular Hemoglobin 31.8 pg (28.0-32.0) Mean Corpuscular Hemoglobin Concent 33.1 g/dL (32.0-36.0) Red Cell Distribution Width 14.1 % (11.8-14.3) Platelet Count 243 10^3/uL (140-450) Mean Platelet Volume 8.3 fL (6.9-10.8) Neutrophils (%) (Auto) 56.8 % (37.0-80.0) Lymphocytes (%) (Auto) 30.8 % (10.0-50.0) Monocytes (%) (Auto) 10.6 % (0.0-12.0) Eosinophils (%) (Auto) 1.1 % (0.0-7.0) Basophils (%) (Auto) 0.7 % (0.0-2.0) Neutrophils # (Auto) 6.0 10 ^3/uL (1.6-8.6) Lymphocytes # (Auto) 3.3 10 ^3/uL (0.4-5.4) Monocytes # (Auto) 1.1 10 ^3/uL (0-1.3) Eosinophils # (Auto) 0.1 10 ^3/uL (0-0.8) Basophils # (Auto) 0.1 10 ^3/uL (0-0.2) Nucleated Red Blood Cells 0.1 % Urine Color Light-yellow (Yellow) Urine Clarity Clear (Clear) Urine pH 6.0 (5.0-9.0) Urine Specific [place] 1.015 (1.001-1.035) Urine Protein Negative (Negative) Urine Ketones Negative (Negative) Urine Blood Negative /uL (Negative) Urine Nitrite Negative (Negative) Urine Bilirubin Negative (Negative) Urine Urobilinogen Normal mg/dL (Negative) Urine Leukocyte Esterase 1+ /uL (Negative) Urine RBC 1 /hpf (0 - 4) Urine Microscopic WBC 4 /HPF (0-5) Urine Squamous Epithelial Cells Few /hpf (<5) Urine Bacteria None seen /hpf (None Seen) Urine Glucose Normal mg/dL (Normal) Other Laboratory Tests 01/29/25 05:04 01/28/25 04:51 Brief Hx & Hospital Course: Final diagnoses: Abdominal pain due to alcoholic pancreatitis Acute on chronic pancreatitis, alcoholic History of congestive heart failure Chronic pain syndrome Mixed hyperlipidemia Prediabetic Hypertension 54-year-old female with a history of alcoholic pancreatitis in the past, heart failure, came with a chief complaint of abdominal pain after she consumed some alcohol drinks. Her lipase was slightly elevated and she was treated for pancreatitis with the pain management. Because she had history of CHF we did an echocardiogram has not been read yet Today she is feeling better, no abdominal pain no nausea no vomiting and therefore she is stable for discharge Continue same home medications and follow up with her primary care physician as soon as possible She was educated about avoiding alcohol Condition at Discharge: Stable Final Diagnosis/Problems List Abdominal pain due to alcoholic pancreatitis Acute on chronic pancreatitis, alcoholic History of congestive heart failure Chronic pain syndrome Mixed hyperlipidemia Prediabetic Hypertension Discharge Disposition: Home SNF Discharge Will this Physician continue t: No Discharge Instruct/Medications Diet: Cardiac 2g Na,low cholest Activity: No Restrictions, As Tolerated Follow Up/Referral: PCP as soon as possible Medications: Same home medications Discharge Statement: "Patient was advised to return to the ER or call 911 if any headaches, dizziness, shortness of breath, chest pain, abdominal pain, bleeding, fevers, or worsening of medical condition. Patient was counseled about treatment plan, medications, possible side effects, patientverbalized understanding. All questions were answered to the best of my ability. This discharge took greater then 30 minutes in planning, reviewing documentation, counseling the patient, and discussing with other team members." ASSESSMENT ASSESSMENT Assessment Abdominal pain due to alcoholic pancreatitis Acute on chronic pancreatitis, alcoholic History of congestive heart failure Chronic pain syndrome Mixed hyperlipidemia Prediabetic Hypertension Date of Service: Jan 29, 2025 Billing Provider: FIONA SAPP MD Common Visit Codes: NOT BILLABLE FIONA SAPP MD Jan 29, 2025 15:42
--- NOTE | 2025-01-31 01:16 | DVHSR ---
APPROVED REPORT EXAM: Two-dimensional and M-mode echocardiogram with Doppler, color Doppler and Bubble Study. Blood Pressure: 122/40 mmHg INDICATION CHF RISK FACTORS Height: 5'3, Weight: 144 DIMENSIONS LVDd4.7 (3.8-5.7cm)LA (2D)2.6 (1.9-4.0cm)Aortic Root2.9 (2.0-3.7cm) LVDs4.0 (2.5-4.0cm)LA (MM) (1.9-4.0cm)Aortic Cusp Exc1.2 (1.5-2.0cm) EF (%) 50.0 (55-70%)Rt. Atrium5.2 (1.9-4.0cm)Asc. Aorta cm IVSd0.9 (0.7-1.1cm)RV (D)3.1 (1.8-2.4cm) PWd0.9 (0.7-1.1cm) Mitral Valve MitralMitral Stenosis E wave1.09m/sMV Mean GR.mmHg A wave1.17m/sMV Peak GR.100mmHg E/A ratio0.92D MVAcm2 DECEL [id number] 1/2 [place] Aortic Valve Aortic ValveAortic Stenosis V10.78m/Bonnie Mean GR.2mmHg V20.94m/Bonnie Peak GR.4mmHg LVOT Diameter2.2 (1.8-2.4cm)Doppler AVA3.15cm2 Pulmonic Valve V20.63m/s Tricuspid Valve TR Velocity2.41m/s [id number] ATRIA The atrial septum is aneurysmal. Conclusion DILATED LV LV GLOBAL HYPOKINESIS LV EF IS ONLY 25% NORMAL VALVES NO EFFUSION
== END 2025-01-29 18:10 | disposition home or self-care (01) | DRG 438 ==
LOC: ER 19:42 → OVERFLOW 22:31 → CENTRAL 23:45
PROVIDERS: ADMIT Internal Medicine Geriatric Medicine; ATTEND Internal Medicine Geriatric Medicine
DX: K85.20 Alcohol induced acute pancreatitis without necrosis or infection (principal); N17.0 Acute kidney failure with tubular necrosis; E11.9 Type 2 diabetes mellitus without complications; K86.1 Other chronic pancreatitis; G89.4 Chronic pain syndrome; E78.2 Mixed hyperlipidemia; I50.9 Heart failure, unspecified; I11.0 Hypertensive heart disease with heart failure; K86.0 Alcohol-induced chronic pancreatitis; F17.210 Nicotine dependence, cigarettes, uncomplicated; Z79.82 Long term (current) use of aspirin; Z79.899 Other long term (current) drug therapy; Z82.49 Family history of ischemic heart disease and other diseases of the circulatory system; Z87.442 Personal history of urinary calculi
CPT/HCPCS: 36415; 76705; 80048; 80053; 80061; 81001; 82962; 83690; 83735; 85025; 93306; 96374; 96375; G0378; J1815; J2405; J2470